=== PATIENT | male | born 1985 | race Two or more races ===

== ENCOUNTER 2025-04-25 20:58 | Inpatient (IN) | payer OTHER, MEDICAID ==
[~2025-04-25] VITALS: Ht 188 cm; Wt 72.0 kg
[2025-04-25 22:56] LABS: Hematocrit 43.9 % (41.0-53.0); Hemoglobin 15.0 g/dL (13.5-17.5); Mean Corpuscular Hemoglobin 29.5 pg (28.0-32.0); Mean Corpuscular Volume 86.5 fL (80.0-100.0); Nucleated Red Blood Cells % 0.0 %
[2025-04-25 23:20] LABS: Alanine Aminotransferase 35 U/L (7-40); Albumin 4.4 g/dL (3.2-4.8); Alkaline Phosphatase 87 U/L (46-116); Anion Gap 17 (5-15); BUN/Creatinine Ratio 13.6 (10.0-20.0); Blood Urea Nitrogen 17 mg/dL (9-23); Calcium 9.9 mg/dL (8.7-10.4); Carbon Dioxide 22 mmol/L (20-31); Lipase 20 U/L (12-53); Magnesium 2.0 mg/dL (1.6-2.6); Potassium 4.4 mmol/L (3.5-5.1); Total Protein 7.4 g/dL (5.7-8.2)
[2025-04-25 23:21] LABS: Bilirubin, Total 1.0 mg/dL (0.2-1.0); Chloride 94 mmol/L (98-107); Glucose 313 mg/dL (74-106); Sodium 133 mmol/L (136-145)
--- NOTE | 2025-04-25 23:40 | DVH ---
CT SCAN ABDOMEN AND PELVIS WITHOUT CONTRAST CLINICAL HISTORY: abd pain n/v TECHNIQUE: Helical axial images are obtained from the lung bases through the pelvis without oral cont rast. No intravenous contrast was administered. Coronal and sagittal reformatted images were generate d from thin section reconstructions. One or more of the following radiation dose reduction techniques were used for this examination: automated exposure control, adjustment of the mA and/or kV according to patient size, use of iterative reconstruction technique. COMPARISON: None FINDINGS: LOWER THORAX: Imaged lung bases are grossly clear. ABDOMEN AND PELVIS: Evaluation of visceral and vascular structures is limited due to lack of contrast administration. As visualized, the unenhanced liver, spleen, pancreas and adrenals appear grossly unremarkable. No si zable, radiopaque cholelithiasis or biliary ductal dilatation. No hydroureteronephrosis or sizable, obstructing urinary tract calculi identified. No evidence of abdominal aortic aneurysm. No evidence of small-bowel obstruction. Visualized appendix appears normal caliber. No free intraperi toneal air or fluid identified. Urinary bladder is distended. No sizable bladder calculus. No destructive osseous lesions identified. IMPRESSION: No bowel obstruction, free intraperitoneal air/ fluid or sizable inflammatory collections identified on this noncontrast examination.
[2025-04-26] VITALS (13 sets, daily range): BP systolic 123–160; BP diastolic 62–86; PULSE 71–105; RESP 8–22; TEMP 98.4–98.8; O2SAT 89–99
[2025-04-26] MEDS: cefTRIAXone 1GM/50ML D5W 50 ML IV ONE
[2025-04-26 00:16] LABS: Base Excess -1.1 mmol/L (-2.0-3.0)
--- NOTE | 2025-04-26 00:26 | ED.PDOC ---
History of present illness HPI Comments HPI: Poor Historian. 40-year-old male presents to emergency depart for evaluation of nausea and vomiting unable to keep anything down with some associated mild generalized abdominal discomfort. Patient states he feels very weak. Patient states he had similar episodes in the past due to DKA. Patient states he is compliant with his insulin. He had these symptoms for at least four days. Vomiting is nonbilious nonbloody. Denies any other acute symptoms. Past Medical History: DM type I, History of DKA Past Surgical History: right finger surgery Vitals: temperature of 98.3F pulse of 104 respiratory rate of 22, blood pressure of 144/94 SpO2 of 100%RA REVIEW OF SYSTEMS: CONSTITUTIONAL: Denies acute: fever, diaphoresis, chills, HEAD: Denies acute: headache, photophobia Eyes: Denies acute: Double vision, vision loss, eye pain, eye discharge. EARS: Denies acute: tinnitus, hearing loss, ear discharge, ear pain, THROAT: Denies acute: sore throat, swelling, difficulty swallowing , pain with swallowing, change in voice. NECK: Denies acute: neck pain, neck swelling, stiff neck. HEART: Denies acute : chest pain, palpitations, LUNGS: Denies acute: SOB, wheezing, cough, hemoptysis ABDOMEN: Denies acute: , diarrhea, melena , hematemesis, hematochezia SKIN: Denies acute: rash, redness, lesions, itchiness. EXTREMITIES: Denies acute: calf pain, numbness, tingling, weakness, denies pain in extremity. Denies acute: Low back pain. Neuro: Denies acute: focal neurological deficit, motor or sensory focal neurological deficit, tremors, seizure like activity, confusion, dizziness, change in mental status, loss of bowel or bladder function, cauda equina like symptoms. : Denies acute: dysuria, hematuria, flank pain, increase in urinary frequency. PSYCH: Denies acute: hallucination, suicidal ideation, homicidal ideation. PHYSICAL EXAM: General: ----moderate----acute distress, awake and alert. Head: normocephalic, atraumatic. Neck: supple, trachea is midline, no swelling. Throat: Normal phonation. Eyes:, no erythema, no purulent discharge, no proptosis, no icterus. Heart: regular rate, regular rhythm, no significant murmur appreciated. Lungs: no apparent respiratory distress, Able to speak in full sentences. No wheezing, no rhonchi, no crackles. No stridors Clear to auscultation bilaterally. Abdomen: Nonspecific mild generalized tender to palpation, non distended, soft, no guarding, no rebound, + bowel sounds. Neuro: Awake, Alert, oriented to name, self, situation, follows commands GCS=15. Speech is normal. Skin: no petechia, no purpura, no cyanosis, non-pale, not jaundice. Lower extremities: --no - Pitting edema no deformity, no focal swelling, no calf TTP. Makes eye contact. moves all four extremities. Face: no apparent facial droop. Ambulating in the ED independently. ED COURSE: At this time 7:09 a.m. I spoke with Dr. Silas Peterson physician. Patient has been having abdominal pain and nausea and vomiting causing him some chest discomfort from the multiple episodes of vomiting. Nicholas called and said that there is a change of condition. I am not aware who notified Nicholas that he said change of the patient's condition. At this time Nicholas authorized us to keep the patient our facility for further evaluation and treatment. DISCLAIMER: This medical document was created using an electronic medical record system with voice recognition software and computerized dictation system. Although this document has been carefully reviewed, there might still be some phonetic and typographical errors. Occasional wrong-word or "sound-alike" substitutions may have occurred due to the inherent limitations of voice recognition software. These areas are purely typographical due to imperfections of the software programs and do not reflect any compromise in the patient's medical care. Please read the chart carefully and recognize, using context, where these substitutions have occurred. Chief Complaint: Nausea/Vomiting Time Seen by MD: 23:53 History of present illness: Allergies Allergies: Coded Allergies: NO KNOWN ALLERGIES (Unverified , 04/25/25) Information Source: Patient Mode of Arrival: Wheelchair Was a procedure done? Was a procedure done?: No X-Ray, Labs, Meds, VS Vital Signs Date Time Temp Pulse Resp B/P (MAP) Pulse Ox O2 Delivery O2 Flow Rate FiO2 8/26/25 05:29 98.7 97 20 158/75 (102) 97 98.7 04/26/25 05:29 97 20 99 Room Air* 0 21 04/26/25 05:28 158/75 04/26/25 04:59 96 04/26/25 03:30 97.6 103 18 151/95 (113) 99 97.6 04/25/25 21:00 98.3 104 22 144/94 100 98.3 Lab Test 04/26/25 00:06 04/25/25 23:59 04/25/25 22:37 04/25/25 21:10 Range/Units Blood Gas Specimen Type Arterial Blood Gas Sample Site Right brachial Blood Gas Patient Temperature 37.0 Arterial Blood Date Drawn [id number] Arterial Blood pH 7.521 H 7.350-7.450 Arterial Blood Partial Pressure CO2 24.8 L 35.0-48.0 mmHg Arterial Blood Partial Pressure O2 81.4 L 83.0-108.0 mmHg Arterial Blood HCO3 19.8 L 21.0-28.0 mmol/L Arterial Blood Oxygen Saturation 96.1 94.0-98.0 % Arterial Blood Base Excess -1.1 -2.0-3.0 mmol/L Arterial Blood Oxyhemoglobin 94.5 94.0-98.0 % Arterial Blood Carboxyhemoglobin 1.5 0.5-1.5 % Arterial Blood Methemoglobin 0.2 0.0-1.5 % Alfred Test Modified Blood Gas Total Hemoglobin 15.00 13.5-17.5 g/dL Blood Gas Modality Room air FiO2 % 21.0 Urine Color Light-yellow Yellow Urine Clarity Clear Clear Urine pH 6.0 5.0-9.0 Urine Specific [place] 1.037 H 1.001-1.035 Urine Protein Trace H Negative Urine Ketones 4+ H Negative Urine Blood Negative Negative /uL Urine Nitrite Negative Negative Urine Bilirubin Negative Negative Urine Urobilinogen Normal Negative mg/dL Urine Leukocyte Esterase Negative Negative /uL Urine RBC None seen 0 - 3 /hpf Urine Microscopic WBC 1 0-3 /HPF Urine Squamous Epithelial Cells None seen <5 /hpf Urine Bacteria None seen None Seen /hpf Urine Glucose 4+ H Normal mg/dL Urine Opiates Screen Neg NEGATIVE Urine Fentanyl Screen Neg NEGATIVE Urine Barbiturates Screen Neg NEGATIVE Urine Phencyclidine Screen Neg NEGATIVE Urine Amphetamines Screen Neg NEGATIVE Urine Benzodiazepines Screen Neg NEGATIVE Urine Cocaine Screen Neg NEGATIVE Urine Cannabinoids Screen Pos NEGATIVE White Blood Count 19.3 H 4.4-10.8 10^3/uL Red Blood Count 5.07 4.5-5.90 10^6/uL Hemoglobin 15.0 13.5-17.5 g/dL Hematocrit 43.9 41.0-53.0 % Mean Corpuscular Volume 86.5 80.0-100.0 fL Mean Corpuscular Hemoglobin 29.5 28.0-32.0 pg Mean Corpuscular Hemoglobin Concent 34.1 32.0-36.0 g/dL Red Cell Distribution Width 14.4 H 11.8-14.3 % Platelet Count 327 140-450 10^3/uL Mean Platelet Volume 8.5 6.9-10.8 fL Neutrophils (%) (Auto) 84.8 H 37.0-80.0 % Lymphocytes (%) (Auto) 8.3 L 10.0-50.0 % Monocytes (%) (Auto) 6.8 0.0-12.0 % Eosinophils (%) (Auto) 0.0 0.0-7.0 % Basophils (%) (Auto) 0.1 0.0-2.0 % Neutrophils # (Auto) 16.4 H 1.6-8.6 10 ^3/uL Lymphocytes # (Auto) 1.6 0.4-5.4 10 ^3/uL Monocytes # (Auto) 1.3 0-1.3 10 ^3/uL Eosinophils # (Auto) 0 0-0.8 10 ^3/uL Basophils # (Auto) 0 0-0.2 10 ^3/uL Nucleated Red Blood Cells 0.0 % Sodium Level 133 L 136-145 mmol/L Potassium Level 4.4 3.5-5.1 mmol/L Chloride Level 94 L 98-107 mmol/L Carbon Dioxide Level 22 20-31 mmol/L Anion Gap 17 H 5-15 Blood Urea Nitrogen 17 9-23 mg/dL Creatinine 1.25 0.700-1.30 mg/dL Glomerular Filtration Rate Calc 75 >90 mL/min BUN/Creatinine Ratio 13.6 10.0-20.0 Serum Glucose 313 H 74-106 mg/dL Lactic Acid Level 2.0 0.4-2.0 mmol/L Calcium Level 9.9 8.7-10.4 mg/dL Magnesium Level 2.0 1.6-2.6 mg/dL Total Bilirubin 1.0 0.2-1.0 mg/dL Aspartate Amino Transferase (AST) 31 13-40 U/L Alanine Aminotransferase (ALT) 35 7-40 U/L Alkaline Phosphatase 87 46-116 U/L Total Protein 7.4 5.7-8.2 g/dL Albumin 4.4 3.2-4.8 g/dL Lipase 20 12-53 U/L Beta-Hydroxybutyric Acid > 4.500 H < 0.4 mmol/L POC Glucose 322 H 70-106 mg/dl Current Medications Medications (Trade) Dose Ordered Sig/Mayank Route Start Time Stop Time Status Last Admin Sodium Chloride 1,000 ml @ 1,000 mls/hr Q1H ONCE IV 04/25/25 22:30 04/25/25 23:29 DC 04/26/25 05:16 Ondansetron HCl (Zofran) 8 mg ONCE ONCE IV 04/25/25 22:30 04/25/25 22:31 DC 04/26/25 05:20 Insulin Human Regular (InsuLIN R) 5 units ONCE ONCE IV 04/26/25 00:00 04/26/25 00:02 DC 04/26/25 05:16 Ceftriaxone Sodium 50 ml @ 100 mls/hr ONCE ONCE IV 04/26/25 00:00 04/26/25 00:29 DC 04/26/25 05:49 Sodium Chloride 1,000 ml @ 1,000 mls/hr Q1H ONCE IV 04/26/25 00:30 04/26/25 01:29 DC 04/26/25 05:16 Fentanyl Citrate 100 mcg ONCE ONCE IV 04/26/25 05:30 04/26/25 05:31 DC 04/26/25 05:[address] [address] Ph: [phone] DIAGNOSTIC IMAGING Diagnostic Imaging Report : [id number] Signed PATIENT: VANESSA HOLLINS ACCT: [id number] UNIT: [id number] : 1985 LOC: ER ROOM / BED: / AGE / SEX: 40 / M ADM STATUS: REG ER SERVICE 24 ORDERING PHYSICIAN: ROHINI SHARP DO PROCEDURE(s): ABPL - CT AB PEL WO CON-NO ORAL OR IV REASON: abd pain n/v ORDER NUMBER(s): [id number], ACCESSION NUMBER(s): [id number] CT SCAN ABDOMEN AND PELVIS WITHOUT CONTRAST CLINICAL HISTORY: abd pain n/v TECHNIQUE: Helical axial images are obtained from the lung bases through the pelvis without oral contrast. No intravenous contrast was administered. Coronal and sagittal reformatted images were generated from thin section reconstruction s. One or more of the following radiation dose reduction techniques were used for this examination: automated exposure control, adjustment of the mA and/or kV according to patient size, use of iterative reconstruction technique. COMPARISON: None FINDINGS: LOWER THORAX: Imaged lung bases are grossly clear. ABDOMEN AND PELVIS: Evaluation of visceral and vascular structures is limited due to lack of contrast administration. As visualized, the unenhanced liver, spleen, pancreas and adrenals appear grossl y unremarkable. No sizable, radiopaque cholelithiasis or biliary ductal dilatation. No hydroureteronephrosis or sizable, obstructing urinary tract calculi identified. No evidence of abdominal aortic aneurysm. No evidence of small-bowel obstruction. Visualized appendix appears normal caliber. No free intraperitoneal air or fluid identified. Urinary bladder is distended. No sizable bladder calculus. No destructive osseous lesions identified. IMPRESSION: No bowel obstruction, free intraperitoneal air/ fluid or sizable inflammatory collections identified on this noncontrast examination. ATED BY: CHAU ROBINS MD DICTATED DATE/TIME: 04/25/252336 SIGNED BY: CHAU ROBINS MD SIGNED DATE/TIME: 04/25/252336 CC: Time of 1ST Reevaluation: 00:23 Reevaluation 1ST: Unchanged Time of 2ND Reevaluation: 02:18 (The case was discussed with the [facility] admitting team (HPI, physical exam, labs and diagnostic tests that were available at the time of disposition, ED course, treatment plan) on the phone. They agreed to transfer the patient to their service by ALS for further evaluation and treatment. Dr. kelly Authorization number is--[id number]) Time of 3RD Reevaluation: 05:05 (As of this minute, none of the medications I ordered a fluids insulin Zofran has been given yet. Transfer team is here to pick him up.) Patient Education/Counseling: Diagnosis, Treatment, Other (need for admission ) Family Education/Counseling: No Family Present SEPSIS Sepsis Screen Date sepsis recognized/suspect: Apr 25, 2025 Time Sepsis recognized/suspect: 2099 Recent Procedure: No On Antibiotic Therapy: No Respiratory Rate >20: Yes Heart Rate >90: Yes Temp<36 C (96.8 F) or >38.3 C: No SBP <90 or MAP <65 mmHG: No New Acute Mental Status Change: No Is the patient on CPAP, BIPAP,: No Physician Orders Metal Tube Cutter (04/25/25 ) Electrocardigram (04/25/25 22:25) Ct Ab Pel Wo Con-No Oral Or Iv (04/25/25 22:25) Abg W/ Co-Ox (04/25/25 23:57) Blood Culture (04/26/25 00:24) Electrocardigram (04/26/25 05:37) Electrocardigram (04/26/25 07:37) Imaging Transfer Request (04/26/25 04:56) Troponin-I Hs (04/26/25 07:06) Troponin-I Hs (04/26/25 08:06) Troponin-I Hs (04/26/25 10:06) Vital Signs Date Time Temp Pulse Resp B/P (MAP) Pulse Ox O2 Delivery O2 Flow Rate FiO2 04/26/25 05:29 98.7 97 20 158/75 (102) 97 98.7 04/26/25 05:29 97 20 99 Room Air* 0 21 04/26/25 05:28 158/75 04/26/25 04:59 96 04/26/25 03:30 97.6 103 18 151/95 (113) 99 97.6 04/25/25 21:00 98.3 104 22 144/94 100 98.3 Laboratory Tests Test 04/25/25 22:37 Lactic Acid Level 2.0 mmol/L (0.4-2.0) White Blood Count 19.3 10^3/uL (4.4-10.8) H Medications Medications Dose Ordered Sig/Mayank Route Start Time Stop Time Status Last Admin Dose Admin Ceftriaxone Sodium 50 ml @ 100 mls/hr ONCE ONCE IV 04/26/25 00:00 04/26/25 00:29 DC 04/26/25 05:49 Fentanyl Citrate 100 mcg ONCE ONCE IV 04/26/25 05:30 04/26/25 05:31 DC 04/26/25 05:28 Insulin Human Regular 5 units ONCE ONCE IV 04/26/25 00:00 04/26/25 00:02 DC 04/26/25 05:16 Ondansetron HCl 8 mg ONCE ONCE IV 04/25/25 22:30 04/25/25 22:31 DC 04/26/25 05:20 Sodium Chloride 1,000 ml @ 1,000 mls/hr Q1H ONCE IV 04/25/25 22:30 04/25/25 23:29 DC 04/26/25 05:16 Sodium Chloride 1,000 ml @ 1,000 mls/hr Q1H ONCE IV 04/26/25 00:30 04/26/25 01:29 DC 04/26/25 05:16 Departure 1 Departure Time of Disposition: 00:25 Impression: Primary Impression: Nausea and vomiting Additional Impressions: Hyperglycemia Leukocytosis Disposition: 02 SHORT TERM HOSPITAL Admit to: Tele Condition: Guarded Discharged With: Self Critical Care Note Critical Care Time?: No I personally scribed for ROHINI SHARP DO ([email or web address]) on 04/26/25 at 00:37. Electronically submitted by Greg Mccollum [email or web address]). ROHINI SHARP DO Apr 26, 2025 00:26
[2025-04-26 02:56] LABS: Urine Protein, UAD TRACE (Negative)
[2025-04-26 03:00] LABS: Cannabinoid Screen, Urine Pos (NEGATIVE); Phencyclidine Screen, Urine Neg (NEGATIVE)
[2025-04-26 03:04] LABS: Amphetamine Screen, Urine Neg (NEGATIVE); Barbiturate Scree,Urine Neg (NEGATIVE); Benzodiazephine Screen, Urine Neg (NEGATIVE); Cocaine Screen, Urine Neg (NEGATIVE); Opiate Scree,Urine Neg (NEGATIVE)
[2025-04-26] MEDS: SODIUM CHLORIDE 0.9% 1,000 ML IV ONE ×2 (05:16)
[2025-04-26] MEDS: InsuLIN REG 1unit/0.01ml Soln (100units/ml) IV ONE (05:16)
[2025-04-26] MEDS: ONDANSETRON HCL 4 MG/2 ML VIAL IV ONE (05:20)
[2025-04-26] MEDS: fentaNYL CITRATE 100 MCG/2 ML VL IV ONE (05:28)
--- NOTE | 2025-04-26 06:05 | ECG ---
[facility] Test Date: 2025-04-26 Test Time: 04:59:57 Pat Name: ELDA HOLLINS Department: Room: [facility] Gender: M Utilization Review Specialist: KUSHAL : 1985 Requested By: ROHINI SHARP Order Number: [id number] Reading MD: Jaylen Dao Measurements Intervals [place] Rate: 96 P: 71 MO: 126 QRS: 81 QRSD: 88 T: 78 QT: 359 QTc: 454 Interpretive Statements Sinus rhythm Electronically Signed On 04-27-2025 18:46:38 PDT by Jaylen Dao Please click the below link to view image of tracing.
[2025-04-26 08:19] LABS: Hematocrit 40.5 % (41.0-53.0); Hemoglobin 13.5 g/dL (13.5-17.5); Mean Corpuscular Hemoglobin 29.4 pg (28.0-32.0); Mean Corpuscular Volume 88.1 fL (80.0-100.0); Nucleated Red Blood Cells % 0.0 %
[2025-04-26 08:32] LABS: Potassium 4.7 mmol/L (3.5-5.1)
[2025-04-26 08:33] LABS: Anion Gap 16 (5-15); Carbon Dioxide 19 mmol/L (20-31); Chloride 98 mmol/L (98-107); Sodium 133 mmol/L (136-145)
[2025-04-26 08:34] LABS: Calcium 8.3 mg/dL (8.7-10.4)
[2025-04-26 08:38] LABS: BUN/Creatinine Ratio 17.0 (10.0-20.0); Blood Urea Nitrogen 19 mg/dL (9-23)
[2025-04-26 08:40] LABS: Glucose 327 mg/dL (74-106)
[2025-04-26] MEDS: METOCLOPRAMIDE HCL 5MG/ml INJ 2ml VIAL IV PRN (09:33)
[2025-04-26] MEDS ORDERED: DOCUSATE SOD 100 MG CAP PO PRN (10:00)
[2025-04-26] MEDS ORDERED: ACETAMINOPHEN 325 MG TAB PO PRN (10:00)
[2025-04-26] MEDS ORDERED: NITROGLYCERIN 0.4 MG SL TAB SL PRN (10:00)
[2025-04-26] MEDS ORDERED: DEXTROSE (50%) 50ML SYRG IV PRN (10:00)
--- NOTE | 2025-04-26 10:09 | DVHHP2 ---
History of Present Illness Reason for Visit: Nausea and vomiting History of Present Illness Ji Casas is a 40-year-old male with past medical history of diabetes, who came to the hospital with complaints of intractable nausea and vomiting. Patient states he has been nauseated and vomiting for 1 week. He states the last 4 days he has not been able to hold down any food or water. Patient has been in DKA prior and states this feels the same. He does state that he is compliant with his medications and has been taking his insulin. 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) Smoke: No ALCOHOL: rare Drugs: Marijuana Lives: with Family Domestic Violence: Neg Review of Systems Constitutional: No: Fever, Chills, Sweats, Weakness, Malaise, Other Eyes: No: Pain, Vision change, Conjunctivae inflammation, Eyelid inflammation, Other, Redness ENT: No: Ear pain, Ear discharge, Nose pain, Nose discharge, Nose congestion, Mouth pain, Mouth swelling, Throat pain, Throat swelling, Other Respiratory: No: Cough, Dry, Shortness of breath, SOB with excertion, Wheezing, Hemoptysis, Pleuritic Pain, Sputum, Wheezing, Other Cardiovascular: No: Chest Pain, Palpitations, Orthopnea, Paroxysmal Noc. Dyspnea, Edema, Lt Headedness, Other Gastrointestinal: Nausea, Vomiting, Abdominal Pain; No: Diarrhea, Constipation, Melena, Hematochezia, Other Genitourinary: No Dysuria, No Frequency, No Incontinence, No Hematuria, No Retention, No Other Musculoskeletal: No: other, neck pain, shoulder pain, arm pain, back pain, hand pain, leg pain, foot pain Skin: No: Rash, Lesions, Jaundice, Bruising, Other Neurological: No: Weakness, Numbness, Incoordination, Change in speech, Confusion, Seizures, Other Allergies: Coded Allergies: NO KNOWN ALLERGIES (Unverified , 04/25/25) Medications Current Medications Medications Dose Ordered Sig/Mayank Route Start Time Stop Time Status Last Admin Dose Admin Metoclopramide HCl 10 mg Q6HPRN PRN IV 04/26/25 08:30 04/26/25 09:33 10 MG Exam Vital Signs Vital Signs Date Time Temp Pulse Resp B/P (MAP) Pulse Ox O2 Delivery O2 Flow Rate FiO2 04/26/25 08:00 97.9 79 18 199/109 (139) 97 97.9 04/26/25 08:00 Room Air* 0 21 General Appearance: Alert, Oriented X3, Cooperative, moderate distress HEENT: Atraumatic, PERRLA Respiratory: Clear to auscultation, Normal air movement Cardiovascular: Regular rate, Normal S1, Normal S2, No murmurs Abdominal: Normal bowel sounds, Soft, Other (Nausea and vomiting, abdominal pain) Extremities: No clubbing, No cyanosis, No edema, Normal pulses, No tenderness/swelling Skin: No rashes, No breakdown, No significant lesion Neuro: Normal gait, Normal speech, Strength at 5/5 X4 ext, Normal tone Psych/Mental Status: Mental status NL, Mood NL Labs/Xrays Labs Test 04/26/25 08:28 04/26/25 07:57 04/26/25 00:06 04/25/25 23:59 Range/Units POC Glucose 312 H 70-106 mg/dl White Blood Count 17.1 H 4.4-10.8 10^3/uL Red Blood Count 4.59 4.5-5.90 10^6/uL Hemoglobin 13.5 13.5-17.5 g/dL Hematocrit 40.5 L 41.0-53.0 % Mean Corpuscular Volume 88.1 80.0-100.0 fL Mean Corpuscular Hemoglobin 29.4 28.0-32.0 pg Mean Corpuscular Hemoglobin Concent 33.4 32.0-36.0 g/dL Red Cell Distribution Width 14.4 H 11.8-14.3 % Platelet Count 256 140-450 10^3/uL Mean Platelet Volume 8.5 6.9-10.8 fL Neutrophils (%) (Auto) 82.7 H 37.0-80.0 % Lymphocytes (%) (Auto) 8.8 L 10.0-50.0 % Monocytes (%) (Auto) 8.4 0.0-12.0 % Eosinophils (%) (Auto) 0.0 0.0-7.0 % Basophils (%) (Auto) 0.1 0.0-2.0 % Neutrophils # (Auto) 14.2 H 1.6-8.6 10 ^3/uL Lymphocytes # (Auto) 1.5 0.4-5.4 10 ^3/uL Monocytes # (Auto) 1.4 H 0-1.3 10 ^3/uL Eosinophils # (Auto) 0 0-0.8 10 ^3/uL Basophils # (Auto) 0 0-0.2 10 ^3/uL Nucleated Red Blood Cells 0.0 % Sodium Level 133 L 136-145 mmol/L Potassium Level 4.7 3.5-5.1 mmol/L Chloride Level 98 98-107 mmol/L Carbon Dioxide Level 19 L 20-31 mmol/L Anion Gap 16 H 5-15 Blood Urea Nitrogen 19 9-23 mg/dL Creatinine 1.12 0.700-1.30 mg/dL Glomerular Filtration Rate Calc 86 >90 mL/min BUN/Creatinine Ratio 17.0 10.0-20.0 Serum Glucose 327 H 74-106 mg/dL Lactic Acid Level 1.4 0.4-2.0 mmol/L Calcium Level 8.3 L 8.7-10.4 mg/dL Troponin I High Sensitivity 8 </=54 ng/L Beta-Hydroxybutyric Acid > 4.500 H < 0.4 mmol/L Blood Gas Specimen Type Arterial Blood Gas Sample Site Right brachial Blood Gas Patient Temperature 37.0 Arterial Blood Date Drawn [id number] Arterial Blood pH 7.521 H 7.350-7.450 Arterial Blood Partial Pressure CO2 24.8 L 35.0-48.0 mmHg Arterial Blood Partial Pressure O2 81.4 L 83.0-108.0 mmHg Arterial Blood HCO3 19.8 L 21.0-28.0 mmol/L Arterial Blood Oxygen Saturation 96.1 94.0-98.0 % Arterial Blood Base Excess -1.1 -2.0-3.0 mmol/L Arterial Blood Oxyhemoglobin 94.5 94.0-98.0 % Arterial Blood Carboxyhemoglobin 1.5 0.5-1.5 % Arterial Blood Methemoglobin 0.2 0.0-1.5 % Alfred Test Modified Blood Gas Total Hemoglobin 15.00 13.5-17.5 g/dL Blood Gas Modality Room air FiO2 % 21.0 Urine Color Light-yellow Yellow Urine Clarity Clear Clear Urine pH 6.0 5.0-9.0 Urine Specific [place] 1.037 H 1.001-1.035 Urine Protein Trace H Negative Urine Ketones 4+ H Negative Urine Blood Negative Negative /uL Urine Nitrite Negative Negative Urine Bilirubin Negative Negative Urine Urobilinogen Normal Negative mg/dL Urine Leukocyte Esterase Negative Negative /uL Urine RBC None seen 0 - 3 /hpf Urine Microscopic WBC 1 0-3 /HPF Urine Squamous Epithelial Cells None seen <5 /hpf Urine Bacteria None seen None Seen /hpf Urine Glucose 4+ H Normal mg/dL Urine Opiates Screen Neg NEGATIVE Urine Fentanyl Screen Neg NEGATIVE Urine Barbiturates Screen Neg NEGATIVE Urine Phencyclidine Screen Neg NEGATIVE Urine Amphetamines Screen Neg NEGATIVE Urine Benzodiazepines Screen Neg NEGATIVE Urine Cocaine Screen Neg NEGATIVE Urine Cannabinoids Screen Pos NEGATIVE Test 04/25/25 22:37 Range/Units Magnesium Level 2.0 1.6-2.6 mg/dL Total Bilirubin 1.0 0.2-1.0 mg/dL Aspartate Amino Transferase (AST) 31 13-40 U/L Alanine Aminotransferase (ALT) 35 7-40 U/L Alkaline Phosphatase 87 46-116 U/L Total Protein 7.4 5.7-8.2 g/dL Albumin 4.4 3.2-4.8 g/dL Lipase 20 12-53 U/L CT SCAN ABDOMEN AND PELVIS WITHOUT CONTRAST FINDINGS: LOWER THORAX: Imaged lung bases are grossly clear. ABDOMEN AND PELVIS: Evaluation of visceral and vascular structures is limited due to lack of contrast administration. As visualized, the unenhanced liver, spleen, pancreas and adrenals appear grossly unremarkable. No sizable, radiopaque cholelithiasis or biliary ductal dilatation. No hydroureteronephrosis or sizable, obstructing urinary tract calculi identified. No evidence of abdominal aortic aneurysm. No evidence of small-bowel obstruction. Visualized appendix appears normal caliber. No free intraperitoneal air or fluid identified. Urinary bladder is distended. No sizable bladder calculus. No destructive osseous lesions identified. IMPRESSION: No bowel obstruction, free intraperitoneal air/ fluid or sizable inflammatory collections identified on this noncontrast examination. SEPSIS Sepsis Screen Date sepsis recognized/suspect: Apr 26, 2025 Time Sepsis recognized/suspect: 08 Recent Procedure: No On Antibiotic Therapy: No Respiratory Rate >20: No Heart Rate >90: No Temp<36 C (96.8 F) or >38.3 C: No SBP <90 or MAP <65 mmHG: No New Acute Mental Status Change: No Is the patient on CPAP, BIPAP,: No Physician Orders Electrocardigram (04/26/25 05:37) Electrocardigram (04/26/25 07:37) Imaging Transfer Request (04/26/25 04:56) Troponin-I Hs (04/26/25 10:06) Metoclopramide Injection (Reglan Injecti (04/26/25 08:30) Admit (04/26/25 09:49) Code Status (04/26/25 09:49) Hydrocodone-Acet 5/325mg Tab ([place] 5/32 (04/26/25 10:00) Ondansetron Hcl (Zofran) (04/26/25 10:00) Docusate Sodium Capsule (Colace Capsule) (04/26/25 10:00) Complete Blood Count (04/27/25 04:00) Comprehensive Metabolic Panel (04/27/25 04:00) Condition: Critical (04/26/25 09:49) Acetaminophen Tablet (Tylenol Tablet) (04/26/25 10:00) Nitroglycerin Sublingual (Ntrostat Subli (04/26/25 10:00) Morphine Sulfate Injection (04/26/25 10:00) Stat Ekg For Chest Pain (04/26/25 09:49) Notify Md Of Changes From Base (04/26/25 09:49) Wet End Supervisor For 24 Hours (04/26/25 09:49) Emergency Dysrhythmia Protocol (04/26/25 09:49) Rhythm Strips Once Every Shift (04/26/25 09:49) Oxygen By Nasal Cannula (04/26/25 09:49) Insulin Drip Protocol (04/26/25 ) Sodium Chloride 0.9% (04/26/25 10:00) Insulin Algorithm # 1 (04/26/25 10:00) Dextrose 50% Syringe (04/26/25 10:00) Glucose Blood (Accu-Chek Comfort Curve T (04/26/25 10:30) Phosphorus (04/26/25 09:49) Magnesium (04/26/25 09:49) Osmolality, Serum (04/26/25 09:49) Abg W/ Co-Ox (04/26/25 09:49) Basic Metabolic Panel (04/26/25 14:00) Basic Metabolic Panel (04/26/25 20:00) Basic Metabolic Panel (04/27/25 02:00) Urinalysis (04/26/25 09:49) Neurological Assessment (04/26/25 09:49) Vs/Hemodynamics .PER UNIT PROTOCOL (04/26/25 09:49) Acetone (04/26/25 09:49) Insulin Lantus (Glargine) (Lantus) (04/26/25 22:00) Sodium Chloride 0.9% (04/26/25 14:00) Vital Signs Date Time Temp Pulse Resp B/P (MAP) Pulse Ox O2 Delivery O2 Flow Rate FiO2 04/26/25 08:00 97.9 79 18 199/109 (139) 97 97.9 04/26/25 08:00 Room Air* 0 21 04/26/25 05:29 98.7 97 20 158/75 (102) 97 98.7 04/26/25 05:29 97 20 99 Room Air* 0 21 04/26/25 05:28 158/75 04/26/25 04:59 96 04/26/25 03:30 97.6 103 18 151/95 (113) 99 97.6 Laboratory Tests Test 04/25/25 22:37 04/26/25 07:57 Lactic Acid Level 2.0 mmol/L (0.4-2.0) 1.4 mmol/L (0.4-2.0) White Blood Count 19.3 10^3/uL (4.4-10.8) H 17.1 10^3/uL (4.4-10.8) H Medications Medications Dose Ordered Sig/Mayank Route Start Time Stop Time Status Last Admin Dose Admin Ceftriaxone Sodium 50 ml @ 100 mls/hr ONCE ONCE IV 04/26/25 00:00 04/26/25 00:29 DC 04/26/25 05:49 100 MLS/HR Fentanyl Citrate 100 mcg ONCE ONCE IV 04/26/25 05:30 04/26/25 05:31 DC 04/26/25 05:28 100 MCG Insulin Human Regular 5 units ONCE ONCE IV 04/26/25 00:00 04/26/25 00:02 DC 04/26/25 05:16 5 UNITS Metoclopramide HCl 10 mg Q6HPRN PRN IV 04/26/25 08:30 04/26/25 09:33 10 MG Ondansetron HCl 8 mg ONCE ONCE IV 04/25/25 22:30 04/25/25 22:31 DC 04/26/25 05:20 8 MG Sodium Chloride 1,000 ml @ 1,000 mls/hr Q1H ONCE IV 04/25/25 22:30 04/25/25 23:29 DC 04/26/25 05:16 1,000 MLS/HR Sodium Chloride 1,000 ml @ 1,000 mls/hr Q1H ONCE IV 04/26/25 00:30 04/26/25 01:29 DC 04/26/25 05:16 1,000 MLS/HR Assessment/Plan Assessment/Plan Assessment: Diabetic ketoacidosis, Intractable nausea and vomiting, Uncontrolled diabetes, Leukocytosis, Plan: Admit to SDU, IV insulin drip, IV hydration, IV antibiotics, Manage/Monitor electrolytes closely, BMP Q 6 hours x 3, NPO except ice chips, Plan discussed with: Patient My Orders Orders - DREAD NAVARRO [employer] Procedure Category Date Status Time Metoclopramide PHA 04/26/25 In Process Injection (Reglan 08:30 Admit ADMIT 04/26/25 Transmitted 09:49 Code Status CODE 04/26/25 Transmitted 09:49 Hydrocodone-Acet PHA 04/26/25 Transmitted 5/325mg Tab ([place] 10:00 Ondansetron Hcl PHA 04/26/25 Transmitted (Zofran) 10:00 Docusate Sodium [facility] 04/26/25 Transmitted Capsule (Colace 10:00 Complete Blood Count LAB 04/27/25 Verified 04:00 Comprehensive LAB 04/27/25 Verified Metabolic Panel 04:00 Condition: Critical [facility] 04/26/25 Transmitted 09:49 Acetaminophen Tablet PHA 04/26/25 Transmitted (Tylenol Tablet) 10:00 Nitroglycerin PHA 04/26/25 Transmitted Sublingual (Ntrostat 10:00 Morphine Sulfate PHA 04/26/25 Transmitted Injection 10:00 Stat Ekg For Chest [facility] 04/26/25 Transmitted Pain 09:49 Notify Of Changes [facility] 04/26/25 Transmitted From Base 09:49 Wet End Supervisor For [facility] 04/26/25 Transmitted 24 Hours 09:49 Emergency Dysrhythmia [facility] 04/26/25 Transmitted Protocol 09:49 Rhythm Strips Once [facility] 04/26/25 Transmitted Every Shift 09:49 Oxygen By Nasal RT 04/26/25 Transmitted Cannula 09:49 Insulin Drip Protocol [facility] 04/26/25 Transmitted Sodium Chloride 0.9% PHA 04/26/25 Transmitted 10:00 Insulin Algorithm # 1 [facility] 04/26/25 Verified 10:00 Dextrose 50% Syringe PHA 04/26/25 Verified 10:00 Glucose Blood PHA 04/26/25 Verified (Accu-Chek Comfort 10:30 Phosphorus LAB 04/26/25 Transmitted 09:49 Magnesium LAB 04/26/25 Transmitted 09:49 Osmolality, Serum LAB 04/26/25 Transmitted 09:49 Abg W/ Co-Ox RT 04/26/25 Transmitted 09:49 Basic Metabolic Panel LAB 04/26/25 Verified 14:00 Basic Metabolic Panel LAB 04/26/25 Verified 20:00 Basic Metabolic Panel LAB 04/27/25 Verified 02:00 Urinalysis LAB 04/26/25 Transmitted 09:49 Neurological STACIA 04/26/25 Verified Assessment 09:49 Vs/Hemodynamics STACIA 04/26/25 Verified 09:49 Acetone LAB 04/26/25 Transmitted 09:49 Insulin Lantus PHA 04/26/25 Verified (Glargine) (Lantus) 22:00 Sodium Chloride 0.9% PHA 04/26/25 Transmitted 14:00 Date of Service: Apr 26, 2025 Billing Provider: DREAD NAVARRO Common Visit Codes: [id number] INP/OBS CARE (HIGH) DREAD NAVARRO Apr 26, 2025 10:08
[2025-04-26 10:25] LABS: Base Excess -7.7 mmol/L (-2.0-3.0)
[2025-04-26 10:30] LABS: Magnesium 1.9 mg/dL (1.6-2.6)
[2025-04-26] MEDS: ACCU-CHEK COMFORT CURVE STRIP VI SCH (10:30)
[2025-04-26] MEDS: SODIUM CHLORIDE 0.9% 1,000 ML IV SCH ×3 (11:00→16:12)
[2025-04-26] MEDS: INSULIN DRIP 100 UNIT/100ML 100 ML IV SCH ×4 (11:07→23:02)
[2025-04-26] MEDS: ONDANSETRON HCL 4 MG/2 ML VIAL IV PRN (14:00)
[2025-04-26 14:48] LABS: Chloride 101 mmol/L (98-107); Potassium 4.3 mmol/L (3.5-5.1)
[2025-04-26 14:49] LABS: Anion Gap 13 (5-15)
[2025-04-26 14:50] LABS: Calcium 8.5 mg/dL (8.7-10.4); Carbon Dioxide 20 mmol/L (20-31); Sodium 134 mmol/L (136-145)
[2025-04-26 14:54] LABS: BUN/Creatinine Ratio 11.5 (10.0-20.0); Blood Urea Nitrogen 13 mg/dL (9-23); Glucose 263 mg/dL (74-106)
[2025-04-26 15:05] LABS: Urine Protein, UAD Negative (Negative)
[2025-04-26] MEDS ORDERED: THROAT LOZENGES(CEPASTAT) MT PRN (15:45)
[2025-04-26] MEDS: MORPHINE SULFATE INJ 2 MG/ml SYRG IV PRN (16:25)
[2025-04-26] MEDS: SALINE 0.65 % NASAL SPRAY 45ML BOTTLE EACHNOSTRI ONE (17:32)
[2025-04-26 20:04] LABS: Chloride 105 mmol/L (98-107); Potassium 3.9 mmol/L (3.5-5.1); Sodium 138 mmol/L (136-145)
[2025-04-26 20:05] LABS: Anion Gap 9 (5-15); Carbon Dioxide 24 mmol/L (20-31)
[2025-04-26 20:06] LABS: Calcium 7.9 mg/dL (8.7-10.4)
[2025-04-26 20:10] LABS: BUN/Creatinine Ratio 12.1 (10.0-20.0); Blood Urea Nitrogen 12 mg/dL (9-23); Glucose 162 mg/dL (74-106)
[2025-04-26] MEDS: INSULIN LANTUS (GLARGINE) 1 /0.01ml (100units/ml) SC SCH (21:50)
[2025-04-27] VITALS (22 sets, daily range): BP systolic 138–168; BP diastolic 76–102; PULSE 64–90; RESP 6–16; TEMP 98–98.6; O2SAT 93–100
[2025-04-27] MEDS: INSULIN DRIP 100 UNIT/100ML 100 ML IV SCH
[2025-04-27] MEDS ORDERED: DEXTROSE (50%) 50ML SYRG IV PRN ×2 (00:15→12:30)
[2025-04-27] MEDS: InsuLIN REG 1unit/0.01ml Soln (100units/ml) SC SCH ×2 (04:00→18:00)
[2025-04-27] MEDS: ACCU-CHEK COMFORT CURVE STRIP VI SCH ×2 (04:20→18:00)
[2025-04-27 06:10] LABS: Hematocrit 37.8 % (41.0-53.0); Hemoglobin 12.9 g/dL (13.5-17.5); Mean Corpuscular Hemoglobin 29.6 pg (28.0-32.0); Mean Corpuscular Volume 86.5 fL (80.0-100.0); Nucleated Red Blood Cells % 0.0 %
[2025-04-27 06:20] LABS: Alanine Aminotransferase 31 U/L (7-40); Alkaline Phosphatase 67 U/L (46-116); Anion Gap 9 (5-15); BUN/Creatinine Ratio 12.5 (10.0-20.0); Blood Urea Nitrogen 11 mg/dL (9-23); Carbon Dioxide 28 mmol/L (20-31); Chloride 101 mmol/L (98-107); Glucose 100 mg/dL (74-106); Potassium 4.0 mmol/L (3.5-5.1); Sodium 138 mmol/L (136-145); Total Protein 5.7 g/dL (5.7-8.2)
[2025-04-27 06:21] LABS: Albumin 3.4 g/dL (3.2-4.8)
[2025-04-27 06:22] LABS: Bilirubin, Total 0.9 mg/dL (0.2-1.0)
[2025-04-27 06:23] LABS: Calcium 8.1 mg/dL (8.7-10.4)
[2025-04-27] MEDS: cefTRIAXone 1GM/50ML D5W 50 ML IV SCH (08:36)
[2025-04-27] MEDS: MORPHINE SULFATE INJ 2 MG/ml SYRG IV PRN (10:22)
[2025-04-27 10:50] LABS: Hepatitis B Surface Antigen Negative (Negative)
--- NOTE | 2025-04-27 10:53 | MEDREC ---
[facility] ASP Intervention Section I [facility] ASP Intervention: Review courses of therapy (Leukocytosis may occur in the presence of DKA. Leukocytosis trending towards normal as BG recovers. Pt afebrile since admission, negative urine analysis, lactic acid WNL since admission, and CMP all WNL. May consider d/cing abx if/when clinically appropriate) MICHAEL MOSHER [facility] RESIDENT Apr 27, 2025 10:53
[2025-04-27 11:26] LABS: Hepatitis C Antibody Negative (Negative)
--- NOTE | 2025-04-27 12:28 | DVHDS2 ---
Discharge Summary Date of Admission Apr 26, 2025 at 09:49 Date of Discharge: Apr 27, 2025 Labs/Diagnostic Data: Laboratory Results Test 04/27/25 11:51 04/27/25 05:36 04/26/25 18:02 04/26/25 14:23 POC Glucose 108 mg/dl (70-106) White Blood Count 11.4 10^3/uL (4.4-10.8) Red Blood Count 4.37 10^6/uL (4.5-5.90) Hemoglobin 12.9 g/dL (13.5-17.5) Hematocrit 37.8 % (41.0-53.0) Mean Corpuscular Volume 86.5 fL (80.0-100.0) Mean Corpuscular Hemoglobin 29.6 pg (28.0-32.0) Mean Corpuscular Hemoglobin Concent 34.2 g/dL (32.0-36.0) Red Cell Distribution Width 14.6 % (11.8-14.3) Platelet Count 247 10^3/uL (140-450) Mean Platelet Volume 8.4 fL (6.9-10.8) Neutrophils (%) (Auto) 68.5 % (37.0-80.0) Lymphocytes (%) (Auto) 19.1 % (10.0-50.0) Monocytes (%) (Auto) 12.1 % (0.0-12.0) Eosinophils (%) (Auto) 0.1 % (0.0-7.0) Basophils (%) (Auto) 0.2 % (0.0-2.0) Neutrophils # (Auto) 7.8 10 ^3/uL (1.6-8.6) Lymphocytes # (Auto) 2.2 10 ^3/uL (0.4-5.4) Monocytes # (Auto) 1.4 10 ^3/uL (0-1.3) Eosinophils # (Auto) 0 10 ^3/uL (0-0.8) Basophils # (Auto) 0 10 ^3/uL (0-0.2) Nucleated Red Blood Cells 0.0 % Sodium Level 138 mmol/L (136-145) Potassium Level 4.0 mmol/L (3.5-5.1) Chloride Level 101 mmol/L (98-107) Carbon Dioxide Level 28 mmol/L (20-31) Anion Gap 9 (5-15) Blood Urea Nitrogen 11 mg/dL (9-23) Creatinine 0.88 mg/dL (0.700-1.30) Glomerular Filtration Rate Calc 112 mL/min (>90) BUN/Creatinine Ratio 12.5 (10.0-20.0) Serum Glucose 100 mg/dL (74-106) Calcium Level 8.1 mg/dL (8.7-10.4) Total Bilirubin 0.9 mg/dL (0.2-1.0) Aspartate Amino Transferase (AST) 32 U/L (13-40) Alanine Aminotransferase (ALT) 31 U/L (7-40) Alkaline Phosphatase 67 U/L (46-116) Total Protein 5.7 g/dL (5.7-8.2) Albumin 3.4 g/dL (3.2-4.8) Hepatitis B Surface Antigen Negative (Negative) Hepatitis C Antibody Negative (Negative) Urine Color Light-yellow (Yellow) Urine Clarity Clear (Clear) Urine pH 5.5 (5.0-9.0) Urine Specific [place] 1.034 (1.001-1.035) Urine Protein Negative (Negative) Urine Ketones 4+ (Negative) Urine Blood Negative /uL (Negative) Urine Nitrite Negative (Negative) Urine Bilirubin Negative (Negative) Urine Urobilinogen Normal mg/dL (Negative) Urine Leukocyte Esterase Negative /uL (Negative) Urine RBC <1 /hpf (0 - 3) Urine Microscopic WBC < 1 /HPF (0-3) Urine Squamous Epithelial Cells None seen /hpf (<5) Urine Bacteria None seen /hpf (None Seen) Urine Glucose 4+ mg/dL (Normal) Test 04/26/25 12:57 04/26/25 10:09 04/26/25 07:57 04/25/25 23:59 Troponin I High Sensitivity 8 ng/L (</=54) Blood Gas Specimen Type Arterial Blood Gas Sample Site Left brachial Blood Gas Patient Temperature 37.0 Arterial Blood Date Drawn [id number] Arterial Blood pH 7.375 (7.350-7.450) Arterial Blood Partial Pressure CO2 28.0 mmHg (35.0-48.0) Arterial Blood Partial Pressure O2 90.5 mmHg (83.0-108.0) Arterial Blood HCO3 16.0 mmol/L (21.0-28.0) Arterial Blood Oxygen Saturation 95.9 % (94.0-98.0) Arterial Blood Base Excess -7.7 mmol/L (-2.0-3.0) Arterial Blood Oxyhemoglobin 94.7 % (94.0-98.0) Arterial Blood Carboxyhemoglobin 0.9 % (0.5-1.5) Arterial Blood Methemoglobin 0.3 % (0.0-1.5) Alfred Test N/a Blood Gas Total Hemoglobin 13.40 g/dL (13.5-17.5) Blood Gas Modality Room air FiO2 % 21.0 Hemoglobin A1c 9.3 % A1C (<5.7) Serum Osmolality 304 mOsm/kg (278-298) Lactic Acid Level 1.4 mmol/L (0.4-2.0) Phosphorus Level 3.0 mg/dL (2.4-5.1) Magnesium Level 1.9 mg/dL (1.6-2.6) Beta-Hydroxybutyric Acid > 4.500 mmol/L (< 0.4) Urine Opiates Screen Neg (NEGATIVE) Urine Fentanyl Screen Neg (NEGATIVE) Urine Barbiturates Screen Neg (NEGATIVE) Urine Phencyclidine Screen Neg (NEGATIVE) Urine Amphetamines Screen Neg (NEGATIVE) Urine Benzodiazepines Screen Neg (NEGATIVE) Urine Cocaine Screen Neg (NEGATIVE) Urine Cannabinoids Screen Pos (NEGATIVE) Test 04/25/25 22:37 Lipase 20 U/L (12-53) Other Laboratory Tests 04/27/25 05:36 Brief Hx & Hospital Course: see dictated note Condition at Discharge: Fair Final Diagnosis/Problems List abd pain Discharge Disposition: Acute Care Facility Discharge Instruct/Medications Diet: See Comment Diet comment: clear liquid Activity: No Restrictions, As Tolerated Follow Up/Referral: [facility] with [facility] Medications: per oct Discharge Statement: "Patient was advised to return to the ER or call 911 if any headaches, dizziness, shortness of breath, chest pain, abdominal pain, bleeding, fevers, or worsening of medical condition. Patient was counseled about treatment plan, medications, possible side effects, patientverbalized understanding. All questions were answered to the best of my ability. This discharge took greater then 30 minutes in planning, reviewing documentation, counseling the patient, and discussing with other team members." ASSESSMENT ASSESSMENT Assessment abd pain Date of Service: Apr 27, 2025 Billing Provider: MATIAS JAMA MD Common Visit Codes: [id number] DISCH DAY >30min MATIAS JAMA MD Apr 27, 2025 12:28
[2025-04-27] MEDS: SODIUM CHLORIDE 0.9% 1,000 ML IV SCH (12:30)
[2025-04-27] MEDS: PANTOPRAZOLE 40 MG/10 ML VIAL INJ IV ONE (12:30)
--- NOTE | 2025-04-27 13:39 | DVHINCON2 ---
GI Consult Consult Note GI consult note Date of Consultation: 04/27/2025 Chief Complaint: Abdominal pain, vomiting Referring Physician: Dr. Garcia H&P: 40-year-old male with past medical history of diabetes admitted with complains of intractable nausea and vomiting, for the past one-week. Patient has been unable to hold any food or water down. No hematemesis. No melena or red blood in stool. 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 Positive marijuana Family History: Noncontributory Review of Systems: Constitutional: no fever, chill, weight loss HEENT: no eye pain, no hearing loss, no oral lesion, no scleral icterus Heart: no chest pain, no chest pressure Lung: no cough, no dyspnea with exertion Abdomen: see HPI Physical exam: General: NAD, AAOX3 Chest: lung milligan clear to auscultation Heart: RRR, no murmur Abdomen: non-distended, no tenderness to palpation, +BS Labs: Labs Test 04/27/25 12:46 04/27/25 11:51 04/27/25 05:36 04/26/25 18:02 Range/Units POC Glucose 108 H 70-106 mg/dl White Blood Count 11.4 #H 4.4-10.8 10^3/uL Red Blood Count 4.37 L 4.5-5.90 10^6/uL Hemoglobin 12.9 L 13.5-17.5 g/dL Hematocrit 37.8 L 41.0-53.0 % Mean Corpuscular Volume 86.5 80.0-100.0 fL Mean Corpuscular Hemoglobin 29.6 28.0-32.0 pg Mean Corpuscular Hemoglobin Concent 34.2 32.0-36.0 g/dL Red Cell Distribution Width 14.6 H 11.8-14.3 % Platelet Count 247 140-450 10^3/uL Mean Platelet Volume 8.4 6.9-10.8 fL Neutrophils (%) (Auto) 68.5 37.0-80.0 % Lymphocytes (%) (Auto) 19.1 10.0-50.0 % Monocytes (%) (Auto) 12.1 H 0.0-12.0 % Eosinophils (%) (Auto) 0.1 0.0-7.0 % Basophils (%) (Auto) 0.2 0.0-2.0 % Neutrophils # (Auto) 7.8 1.6-8.6 10 ^3/uL Lymphocytes # (Auto) 2.2 0.4-5.4 10 ^3/uL Monocytes # (Auto) 1.4 H 0-1.3 10 ^3/uL Eosinophils # (Auto) 0 0-0.8 10 ^3/uL Basophils # (Auto) 0 0-0.2 10 ^3/uL Nucleated Red Blood Cells 0.0 % Sodium Level 138 136-145 mmol/L Potassium Level 4.0 3.5-5.1 mmol/L Chloride Level 101 98-107 mmol/L Carbon Dioxide Level 28 20-31 mmol/L Anion Gap 9 5-15 Blood Urea Nitrogen 11 9-23 mg/dL Creatinine 0.88 0.700-1.30 mg/dL Glomerular Filtration Rate Calc 112 >90 mL/min BUN/Creatinine Ratio 12.5 10.0-20.0 Serum Glucose 100 74-106 mg/dL Calcium Level 8.1 L 8.7-10.4 mg/dL Total Bilirubin 0.9 0.2-1.0 mg/dL Aspartate Amino Transferase (AST) 32 13-40 U/L Alanine Aminotransferase (ALT) 31 7-40 U/L Alkaline Phosphatase 67 46-116 U/L Total Protein 5.7 5.7-8.2 g/dL Albumin 3.4 3.2-4.8 g/dL Hepatitis B Surface Antigen Negative Negative Hepatitis C Antibody Negative Negative Test 04/26/25 14:23 04/26/25 12:57 04/26/25 10:09 04/26/25 07:57 Range/Units Urine Color Light-yellow Yellow Urine Clarity Clear Clear Urine pH 5.5 5.0-9.0 Urine Specific [place] 1.034 1.001-1.035 Urine Protein Negative Negative Urine Ketones 4+ H Negative Urine Blood Negative Negative /uL Urine Nitrite Negative Negative Urine Bilirubin Negative Negative Urine Urobilinogen Normal Negative mg/dL Urine Leukocyte Esterase Negative Negative /uL Urine RBC <1 0 - 3 /hpf Urine Microscopic WBC < 1 0-3 /HPF Urine Squamous Epithelial Cells None seen <5 /hpf Urine Bacteria None seen None Seen /hpf Urine Glucose 4+ H Normal mg/dL Troponin I High Sensitivity 8 </=54 ng/L Blood Gas Specimen Type Arterial Blood Gas Sample Site Left brachial Blood Gas Patient Temperature 37.0 Arterial Blood Date Drawn [id number] Arterial Blood pH 7.375 7.350-7.450 Arterial Blood Partial Pressure CO2 28.0 L 35.0-48.0 mmHg Arterial Blood Partial Pressure O2 90.5 83.0-108.0 mmHg Arterial Blood HCO3 16.0 L 21.0-28.0 mmol/L Arterial Blood Oxygen Saturation 95.9 94.0-98.0 % Arterial Blood Base Excess -7.7 L -2.0-3.0 mmol/L Arterial Blood Oxyhemoglobin 94.7 94.0-98.0 % Arterial Blood Carboxyhemoglobin 0.9 0.5-1.5 % Arterial Blood Methemoglobin 0.3 0.0-1.5 % Alfred Test N/a Blood Gas Total Hemoglobin 13.40 L 13.5-17.5 g/dL Blood Gas Modality Room air FiO2 % 21.0 Hemoglobin A1c 9.3 H <5.7 % A1C Serum Osmolality 304 H 278-298 mOsm/kg Lactic Acid Level 1.4 0.4-2.0 mmol/L Phosphorus Level 3.0 2.4-5.1 mg/dL Magnesium Level 1.9 1.6-2.6 mg/dL Beta-Hydroxybutyric Acid > 4.500 H < 0.4 mmol/L Test 04/25/25 23:59 04/25/25 22:37 Range/Units Urine Opiates Screen Neg NEGATIVE Urine Fentanyl Screen Neg NEGATIVE Urine Barbiturates Screen Neg NEGATIVE Urine Phencyclidine Screen Neg NEGATIVE Urine Amphetamines Screen Neg NEGATIVE Urine Benzodiazepines Screen Neg NEGATIVE Urine Cocaine Screen Neg NEGATIVE Urine Cannabinoids Screen Pos NEGATIVE Lipase 20 12-53 U/L Microbiology Date/Time Source Procedure Growth Status 04/26/25 00:52 Blood Blood Culture - Preliminary NO GROWTH AFTER 24 HOURS OF INCUBATION. Resulted Imaging: CT abdomen pelvis IMPRESSION: No bowel obstruction, free intraperitoneal air/ fluid or sizable inflammatory collections identified on this noncontrast examination. Assessment: Intractable nausea and vomiting Diabetes with history of DKA Positive marijuana use Plan: Patient seen by Dr. Villaseñor also - Pt will be scheduled for an EGD today 04/27/2025. Pt was informed of the risks (bleeding, infection, perforation, reaction to sedation medications and cardiopulmonary arrest) and benefit and is agreeable to undergo the procedures. Further recommendations to follow procedure Plan discussed with patient and RN Thank you for this consult Date of Service: Apr 27, 2025 Billing Provider: BOB MARTINS Common Visit Codes: CONSULT ONLY Consultation Codes: [id number] CONSULT <60MIN BOB MARTINS Apr 27, 2025 13:39
[2025-04-27 13:53] LABS: INR 1.01 (0.9-1.15); Prothrombin Time 10.7 sec (9.3-11.8)
[2025-04-27] MEDS ORDERED: LIDOCAINE VISCOUS 2% 15ML UD ONE (16:03)
[2025-04-27] MEDS ORDERED: fentaNYL CITRATE 100 MCG/2 ML VL ONE (16:42)
[2025-04-27] MEDS ORDERED: MIDAZOLAM HCL 2MG/2ML 2ml VIAL (1mg/ml) ONE (16:42)
[2025-04-27] MEDS ORDERED: PROPOFOL 10 MG/ML 20 ML IV ONE (16:55)
--- NOTE | 2025-04-27 17:00 | DVHOP2 ---
Operative Report DATE OF OPERATION: 04/27/25 PROCEDURE: Upper Endoscopy with biopsy. PREOPERATIVE INDICATION: The patient is a 40 -year-old male undergoing endoscopy for severe GERD nausea vomiting and dyspepsia POSTOPERATIVE DIAGNOSES: 1. 2 cm sliding-type hiatal hernia with the acute grade C linear erosive esophagitis with ulcers extending into the distal 8-10 cm of the esophagus from which biopsies were obtained 2. Minimal gastroduodenitis with pyloric channel spasm otherwise normal examination up to the 2nd and 3rd part of the duodenal with good bile drainage and no GI bleeding PROCEDURE PERFORMED BY: Daxa Villaseñor GI NURSE: Shelly SCOPE: Olympus videoendoscope. ASA CLASS: 3. PREOPERATIVE MEDICATIONS: Mac sedation, PROCEDURE IN DETAIL: After obtaining an informed consent, the patient was placed on left lateral decubitus position. The patient was then sedated with the above medications. A bite block was placed between his teeth. The endoscope was then passed through the oropharynx, into the esophagus, and through the stomach and pylorus up to the second and third part of the duodenum. The endoscope was then withdrawn. The 2nd and 3rd part of the duodenum and the duodenal bulb were normal. Patient had mild pylorospasm There was mild antral gastritis. On retroflexion the fundus and cardia were normal. Duodenal and gastric biopsies were obtained. The endoscope was then withdrawn into distal esophagus where the patient had a 2 cm sliding-type hiatal hernia with the acute grade C erosive esophagitis Patient had esophageal linear ulcers extending into the distal 8-10 cm of the esophagus from which biopsies were obtained. The proximal esophagus and oropharynx were unremarkable The patient tolerated the procedure well without difficulty. COMPLICATIONS : None SPECIMENS: Duodenal biopsies Gastric biopsies Esophageal biopsies DISPOSITION: Transfer back to the floor Stable PLAN: 1. Await for biopsy result 2. Will place pt on Protonix 40 mg bid IV 3. Carafate suspension 1 g p.o. 4 times a day 4. Clear liquid diet advance to full liquid 5. Dietary and lifestyle modifications for GERD DAXA VILLASEÑOR MD Apr 27, 2025 17:00
[2025-04-27] MEDS: SUCRALFATE 1 GM/10 ML ORAL SUSP PO SCH (18:56)
[2025-04-27] MEDS: KETOROLAC TROMETH 30 MG/ML 1ML VIAL IV ONE (20:15)
[2025-04-27] MEDS: HYDROcodone-ACET 5/325MG TAB PO PRN (20:30)
[2025-04-27] MEDS: PANTOPRAZOLE 40 MG/10 ML VIAL INJ IV SCH (21:19)
[2025-04-27] MEDS: MORPHINE SULFATE INJ 2 MG/ml SYRG IV ONE (21:47)
[2025-04-28] VITALS (9 sets, daily range): BP systolic 107–155; BP diastolic 63–98; PULSE 59–71; RESP 7–16; TEMP 97.7–99.1; O2SAT 95–100
[2025-04-28] MEDS: MORPHINE SULFATE INJ 2 MG/ml SYRG IV PRN (01:31)
[2025-04-28 05:48] LABS: Hematocrit 39.4 % (41.0-53.0); Hemoglobin 13.5 g/dL (13.5-17.5); Mean Corpuscular Hemoglobin 29.8 pg (28.0-32.0); Mean Corpuscular Volume 87.0 fL (80.0-100.0); Nucleated Red Blood Cells % 0.2 %
[2025-04-28 06:12] LABS: Alanine Aminotransferase 23 U/L (7-40); Albumin 3.3 g/dL (3.2-4.8); Alkaline Phosphatase 69 U/L (46-116); Anion Gap 9 (5-15); BUN/Creatinine Ratio 8.0 (10.0-20.0); Bilirubin, Total 0.9 mg/dL (0.2-1.0); Blood Urea Nitrogen 6 mg/dL (9-23); Calcium 8.0 mg/dL (8.7-10.4); Carbon Dioxide 28 mmol/L (20-31); Chloride 102 mmol/L (98-107); Glucose 161 mg/dL (74-106); Potassium 3.6 mmol/L (3.5-5.1); Sodium 139 mmol/L (136-145); Total Protein 5.6 g/dL (5.7-8.2)
[2025-04-28] MEDS ORDERED: PANTOPRAZOLE 40 MG/10 ML VIAL INJ IV SCH (10:00)
[2025-04-28] MEDS: HYDROmorphone HCL 2 MG/ML VL/or syr IV PRN (12:51)
--- NOTE | 2025-04-28 16:08 | DVHPN2 ---
Progress Note Date Seen: Apr 28, 2025 Medical Necessity Reason Pt with a Central, PICC or Fol: No Subjective Patient reports: No new complaints Review of Systems: HEENT:Normal, CVS:Normal, RESPIRATORY:Normal, GI:Normal, :Normal, MSK:Normal, NEURO:Normal Objective vital signs Vital Sign Date Time Temp Pulse Resp B/P (MAP) Pulse Ox O2 Delivery O2 Flow Rate FiO2 04/28/25 13:21 70 10 145/63 04/28/25 12:00 99.0 100 99.0 04/28/25 08:00 Room Air* 0 21 Total Intake and Output 04/27/25 04/27/25 04/28/25 15:00 23:00 07:00 Intake Total 1280 ml 1200 ml Balance 1280 ml 1200 ml medications Current Medications Medications Dose Ordered Sig/Mayank Route Start Time Stop Time Status Last Admin Dose Admin Metoclopramide HCl 10 mg Q6HPRN PRN IV 04/26/25 08:30 04/26/25 09:33 10 MG Acetaminophen/ Hydrocodone Bitart 1 tab Q4HP PRN PO 04/26/25 10:00 04/27/25 20:30 1 TAB Ondansetron HCl 4 mg Q4HP PRN IV 04/26/25 10:00 04/28/25 12:14 4 MG Docusate Sodium 100 mg BIDPRN PRN PO 04/26/25 10:00 Acetaminophen 650 mg Q6HP PRN PO 04/26/25 10:00 Nitroglycerin 0.4 mg Q5MINP PRN SL 04/26/25 10:00 Morphine Sulfate 2 mg Q30M PRN IV 04/26/25 10:00 04/27/25 18:58 2 MG Insulin Glargine 12 units HS SC 04/26/25 22:00 04/27/25 21:23 12 UNITS Throat Lozenges 1 gerry Q2HP PRN MT 04/26/25 15:45 Morphine Sulfate 2 mg Q4HP PRN IV 04/27/25 12:30 Hold 04/28/25 10:27 2 MG Diagnostic Test (Pha) 1 strip Q6HR 04/27/25 18:00 04/28/25 08:01 1 STRIP Insulin Human Regular Q6HR SC 04/27/25 18:00 04/28/25 10:28 8 UNITS Dextrose 50 ml UD PRN IV 04/27/25 12:30 Sodium Chloride 1,000 ml @ 100 mls/hr Q10H IV 04/27/25 12:30 04/28/25 08:05 100 MLS/HR Pantoprazole Sodium 40 mg BID IV 04/27/25 22:00 04/28/25 08:00 40 MG Sucralfate 1 gm QID@0600,1130,1700,2200 PO 04/27/25 17:00 04/28/25 09:29 1 GM Hydromorphone HCl 1 mg Q4HPRN PRN IV 04/28/25 12:30 04/28/25 12:51 1 MG Examination: GENERAL:Normal, HEENT:Normal, NECK:Normal, LUNGS:Normal, CVS:Normal, ABDOMEN:Normal, MSK:Normal, SKIN:Normal, NEURO:Normal, :Normal laboratory and microbiology Laboratory Tests 04/28/25 05:15 Test 04/28/25 05:15 Range/Units Serum Glucose 161 H 74-106 mg/dL Microbiology Date/Time Source Procedure Growth Status 04/26/25 15:02 Nose MRSA Screen - Final Complete 04/26/25 00:52 Blood Blood Culture - Preliminary NO GROWTH AFTER 48 HOURS OF INCUBATION. Resulted Problem List/Assessment/Plan Problem List/Assessment/Plan #1 dka: lantus, ssi #2 abd pain/erosive esophagitis: ppi, ivf #3 sirs due to dka Plan discussed with: Patient My Orders My Orders Orders - MATIAS JAMA MD Procedure Category Date Status Time Hydromorphone PHA 04/28/25 In Process Injection (Dilaudid 12:30 * [employer] Developer CONS 04/28/25 Transmitted Consult Imaging Transfer ORDERS 04/28/25 Transmitted Request 14:56 Consistent DIET 04/28/25 [facility]Diabetes Dinner Basic Metabolic Panel LAB 04/29/25 Verified 06:00 Complete Blood Count LAB 04/29/25 Verified 06:00 Dietary Evaluation Review Comments: Offer Clear liquid with Ensure Clear and double broth Monitor and followup with GI [facility] diet when medically feasible Expected Outcomes/Goals: recover gi function controlled DM maintain wt. Date of Service: Apr 28, 2025 Billing Provider: MATIAS JAMA MD Common Visit Codes: [id number] INP/OBS CARE(HIGH) MATIAS JAMA MD Apr 28, 2025 16:08
--- NOTE | 2025-04-28 16:35 | DVHDS ---
The patient is a 40-year-old gentleman who was admitted with history of intractable nausea and vomiting for one week prior to admission and has history of diabetes. HOSPITAL COURSE: The patient had CT of abdomen and pelvis that showed no evidence of bowel obstruction. The patient was seen in GI consult by Dr. Villaseñor. White count was elevated at 19,000 that improved to 6000 at time of discharge. Tox screen was positive for cannabis. The patient's anion gap at the time of admission was 17. The patient's beta-hydroxybutyrate was also positive. The patient underwent upper endoscopy that showed evidence of severe erosive esophagitis with ulcers. The patient will now be transferred to [place] for further management. FINAL DIAGNOSES: * Diabetic ketoacidosis. * Abdominal pain with erosive esophagitis and ulcers. * Uncontrolled diabetes mellitus. Critical care time spent was 39 minutes. MD GENET Gutierrez/YRIS TID: [id number] RECEIPT: [id number]
--- NOTE | 2025-04-28 22:56 | DVHPN2 ---
Progress Note - Dictate Date Seen: Apr 28, 2025 (Late entryTime of visit 5:00 p.m.) Medical Necessity Reason Pt with a Central, PICC or Fol: No Subjective No new complaints EGD findings reviewed with the patient of hiatal hernia with chronic GERD and esophagitis vital signs Vital Sign Date Time Temp Pulse Resp B/P (MAP) Pulse Ox O2 Delivery O2 Flow Rate FiO2 04/28/25 18:00 98.5 70 10 107/63 (78) 100 98.5 04/28/25 08:00 Room Air* 0 21 Total Intake and Output 04/27/25 04/27/25 04/28/25 15:00 23:00 07:00 Intake Total 1280 ml 1200 ml Balance 1280 ml 1200 ml objective General: NAD, AAOX3 Chest: lung milligan clear to auscultation Heart: RRR, no murmur Abdomen: non-distended, no tenderness to palpation, +BS laboratory and microbiology Laboratory Tests 04/28/25 05:15 Test 04/28/25 05:15 Range/Units Serum Glucose 161 H 74-106 mg/dL Problems(with codes): (1) Hiatal hernia with gastroesophageal reflux disease and esophagitis (2) Diabetic ketoacidosis (3) Nausea and vomiting (4) Leukocytosis (5) Hyperglycemia Prognosis Plan Dietary and lifestyle modifications for GERD discussed with the patient Patient was advised to maintain himself on a PPI long-term He is advised to DC smoking and alcohol Discharge planning is in progress Patient is being transferred to [facility] Dietary Evaluation Review Comments: Offer Clear liquid with Ensure Clear and double broth Monitor and [facility] when medically feasible Expected Outcomes/Goals: recover gi function controlled DM maintain wt. Plan discussed with: Patient DAXA OCAMPO MD Apr 28, 2025 22:56
== END 2025-04-28 19:24 | disposition short-term general hospital (02) | DRG 380 ==
LOC: ER 20:58 → OVERFLOW 04-26 09:49 → DOU 04-26 15:01
PROVIDERS: ADMIT Internal Medicine; ATTEND Internal Medicine
PROC: 0DB68ZX Excision of Stomach, Via Natural or Artificial Opening Endoscopic, Diagnostic (ICD-10-PCS; 2025-04-27)
PROC: 0DB98ZX Excision of Duodenum, Via Natural or Artificial Opening Endoscopic, Diagnostic (ICD-10-PCS; 2025-04-27)
PROC: 0DB18ZX Excision of Upper Esophagus, Via Natural or Artificial Opening Endoscopic, Diagnostic (ICD-10-PCS; principal; 2025-04-27 16:34)
DX: K22.10 Ulcer of esophagus without bleeding (principal); E10.10 Type 1 diabetes mellitus with ketoacidosis without coma; R65.10 Systemic inflammatory response syndrome (SIRS) of non-infectious origin without acute organ dysfunction; K29.70 Gastritis, unspecified, without bleeding; K44.9 Diaphragmatic hernia without obstruction or gangrene; D72.829 Elevated white blood cell count, unspecified; K31.3 Pylorospasm, not elsewhere classified; K21.00 Gastro-esophageal reflux disease with esophagitis, without bleeding; Z79.4 Long term (current) use of insulin
CPT/HCPCS: 36415; 36600; 74176; 80048; 80053; 80307; 81001; 82010; 82805; 82962; 83036; 83605; 83690; 83735; 83930; 84100; 84484; 85025; 85610; 86803; 87040; 87081; 87340; 93005; 96361; 96374; G0378; J1100; J1815; J2250; J2405; J2470; J2704

== ENCOUNTER 2025-08-16 22:51 | Inpatient (IN) | payer MEDICAID, OTHER ==
[~2025-08-16] VITALS: Ht 188 cm; Wt 78.6 kg
--- NOTE | 2025-08-16 23:52 | DVH ---
CLINICAL INDICATION: injury, wound, DM TECHNIQUE: XY L 1ST TOE XRAY COMPARISON: None FINDINGS/IMPRESSION: : There is no evidence of acute fracture or dislocation. Lucent erosion along the medial distal margin of the 1st proximal phalanx adjacent to the articular surface. Soft tissues are unremarkable.
[2025-08-17] VITALS (10 sets, daily range): BP systolic 105–149; BP diastolic 80–86; PULSE 70–95; RESP 16–20; TEMP 97.3–98.3; O2SAT 96–100
--- NOTE | 2025-08-17 00:09 | ED.PDOC ---
Musculoskeletal HPI Comments HPI: Poor Historian. 40-year-old male presents to emergency depart for evaluation of one day history of left great toe redness swelling and tenderness to palpation. Patient has history of injury to that toe five years ago. Patient is concerned that he might be getting a toe infection that could lead to him losing his big toe in amputation just like what happened to him before. Patient denies any other acute symptoms. Past Medical History: Asthma, diabetes Past Surgical History: Finger amputation REVIEW OF SYSTEMS: CONSTITUTIONAL: Denies acute: fever, diaphoresis, chills, generalized weakness. HEAD: Denies acute: headache, photophobia Eyes: Denies acute: Double vision, vision loss, eye pain, eye discharge. EARS: Denies acute: tinnitus, hearing loss, ear discharge, ear pain, THROAT: Denies acute: sore throat, swelling, difficulty swallowing , pain with swallowing, change in voice. NECK: Denies acute: neck pain, neck swelling, stiff neck. HEART: Denies acute : chest pain, palpitations, LUNGS: Denies acute: SOB, wheezing, cough, hemoptysis ABDOMEN: Denies acute: abdominal pain, Nausea, Vomiting, diarrhea, melena , hematemesis, hematochezia SKIN: Denies acute: rash, itchiness. EXTREMITIES: Denies acute: calf pain, numbness, tingling, weakness, Denies acute: Low back pain. Neuro: Denies acute: focal neurological deficit, motor or sensory focal neurological deficit, tremors, seizure like activity, confusion, dizziness, change in mental status, loss of bowel or bladder function, cauda equina like symptoms. : Denies acute: dysuria, hematuria, flank pain, increase in urinary frequency. PSYCH: Denies acute: hallucination, suicidal ideation, homicidal ideation. PHYSICAL EXAM: General: ---mild-----acute distress, awake and alert. Head: normocephalic, atraumatic. No raccoon's eyes, no kim sign. Neck: supple, trachea is midline, no swelling. Throat: Normal phonation. Eyes:, no erythema, no purulent discharge, no proptosis, no icterus. Heart: regular rate, regular rhythm, no significant murmur appreciated. Lungs: no apparent respiratory distress, Able to speak in full sentences. Bilateral wheezing, no rhonchi, no crackles. No stridors Abdomen: non tender to palpation, non distended, soft, no guarding, no rebound, + bowel sounds. Neuro: Awake, Alert, oriented to name, self, situation, follows commands GCS=15. Speech is normal. Skin: no petechia, no purpura, no cyanosis, non-pale, not jaundice. Lower extremities: --no - Pitting edema no deformity, no calf TTP. Evaluation of the affected toe: Noted left great toe swelling redness and tenderness to palpation of the toe and the base of the toe as well. Patient is neurovascularly intact in the affected extremity. Pedal pulses palpable. Sensory and motor are present. Makes eye contact. moves all four extremities. Face: no apparent facial droop. Ambulating in the ED independently. Pedal pulses are palpable. ED COURSE: DISCLAIMER: This medical document was created using an electronic medical record system with voice recognition software and computerized dictation system. Although this document has been carefully reviewed, there might still be some phonetic and typographical errors. Occasional wrong-word or "sound-alike" substitutions may have occurred due to the inherent limitations of voice recognition software. These areas are purely typographical due to imperfections of the software programs and do not reflect any compromise in the patient's medical care. Please read the chart carefully and recognize, using context, where these substitutions have occurred. Chief Complaint: Lower Extremity Time Seen by MD: 23:07 Reviewed Notes: Nurses Notes, Allergies Allergies: Coded Allergies: NO KNOWN ALLERGIES (Unverified , 04/25/25) Home Meds Active Scripts Famotidine (PEPCID TABLET) 20 Mg Tb, 1 TAB PO BID for 14 Days, #28 TAB Prov:CHRISTIANO GREEN RESIDENT 08/17/25 Ibuprofen Micronized (Ibuprofen) 400 Mg Tab, 400 MG PO TID for 5 Days, #15 TAB Prov:CHRISTIANO GREEN RESIDENT 08/17/25 Amoxicillin & Pot Clavulanate (AUGMENTIN TABLET) 875 Mg Tb, 875 MG PO BID for 10 Days, #20 TAB Prov:CHRISTIANO RGEEN RESIDENT 08/17/25 Reported Medications Insulin Glargine-Yfgn (Insulin Glargine) 100 Unit/Ml Inj, SC, INJ 08/17/25 Insulin Lispro (Human) (Humalog) 100 Unit/Ml Inj, SC, INJ 08/17/25 Information Source: Patient Mode of Arrival: Ambulatory Location: Left Was a procedure done? Was a procedure done?: No Differential Diagnosis EXT Differential Diagnosis: Septic, Other (Leg swellingDdx include but not limited to DVT, ischemic limb, pitting edema, volume overload, CHF, cellulitis, hematoma, compartment syndrome, dependent edema, venous stasis. Necrotizing fasciitis, abscess, infestation.) X-Ray, Labs, Meds, VS Vital Signs Date Time Temp Pulse Resp B/P (MAP) Pulse Ox O2 Delivery O2 Flow Rate FiO2 08/17/25 02:10 97.3 95 20 136/86 (103) 96 97.3 08/17/25 02:10 95 20 96 Room Air 08/17/25 01:10 20 97 Room Air* 0 21 08/16/25 22:56 98.6 109 16 120/87 97 98.6 Lab Test 08/16/25 23:39 08/16/25 23:34 Range/Units Lactic Acid Level 1.2 0.4-2.0 mmol/L White Blood Count 7.8 4.4-10.8 10^3/uL Red Blood Count 4.85 4.5-5.90 10^6/uL Hemoglobin 14.4 13.5-17.5 g/dL Hematocrit 42.1 41.0-53.0 % Mean Corpuscular Volume 86.7 80.0-100.0 fL Mean Corpuscular Hemoglobin 29.6 28.0-32.0 pg Mean Corpuscular Hemoglobin Concent 34.1 32.0-36.0 g/dL Red Cell Distribution Width 15.3 H 11.8-14.3 % Platelet Count 337 140-450 10^3/uL Mean Platelet Volume 8.2 6.9-10.8 fL Neutrophils (%) (Auto) 55.6 37.0-80.0 % Lymphocytes (%) (Auto) 31.1 10.0-50.0 % Monocytes (%) (Auto) 9.0 0.0-12.0 % Eosinophils (%) (Auto) 3.6 0.0-7.0 % Basophils (%) (Auto) 0.7 0.0-2.0 % Neutrophils # (Auto) 4.4 1.6-8.6 10 ^3/uL Lymphocytes # (Auto) 2.4 0.4-5.4 10 ^3/uL Monocytes # (Auto) 0.7 0-1.3 10 ^3/uL Eosinophils # (Auto) 0.3 0-0.8 10 ^3/uL Basophils # (Auto) 0.1 0-0.2 10 ^3/uL Nucleated Red Blood Cells 0.5 % Erythrocyte Sedimentation Rate 6 0-20 mm/hr Sodium Level 137 136-145 mmol/L Potassium Level 5.1 3.5-5.1 mmol/L Chloride Level 102 98-107 mmol/L Carbon Dioxide Level 26 20-31 mmol/L Anion Gap 9 5-15 Blood Urea Nitrogen 13 9-23 mg/dL Creatinine 1.28 0.700-1.30 mg/dL Glomerular Filtration Rate Calc 73 >90 mL/min BUN/Creatinine Ratio 10.2 10.0-20.0 Serum Glucose 414 *H 74-106 mg/dL Uric Acid 4.1 3.7-9.2 mg/dL Calcium Level 9.0 8.7-10.4 mg/dL Total Bilirubin 0.4 0.2-1.0 mg/dL Aspartate Amino Transferase (AST) 78 H 13-40 U/L Alanine Aminotransferase (ALT) 39 7-40 U/L Alkaline Phosphatase 93 46-116 U/L C-Reactive Protein High Sensitivity 0.30 <1.0 mg/dL Total Protein 6.7 5.7-8.2 g/dL Albumin 4.0 3.2-4.8 g/dL [place] [id number] Ph: [phone] DIAGNOSTIC IMAGING Diagnostic Imaging Report : [id number] Signed PATIENT: ELDA HOLLINS ACCT: [id number] UNIT: [id number] : 1985 LOC: ER ROOM / BED: / AGE / SEX: 40 / M ADM STATUS: REG ER SERVICE [id number] ORDERING PHYSICIAN: ROHINI SHARP DO PROCEDURE(s): LTOE1 - L 1ST TOE XRAY REASON: injury, wound, DM ORDER NUMBER(s): [id number], ACCESSION NUMBER(s): [id number] CLINICAL INDICATION: injury, wound, DM TECHNIQUE: XY L 1ST TOE XRAY COMPARISON: None FINDINGS/IMPRESSION: : There is no evidence of acute fracture or dislocation. Lucent erosion along the medial distal margin of the 1st proximal phalanx adjacent to the articular surface. Soft tissues are unremarkable. ATED BY: ISAAK VILLARREAL MD DICTATED DATE/TIME: 08/16/252349 SIGNED BY: ISAAK VILLARREAL MD SIGNED DATE/TIME: 08/16/252349 CC: Time of 1ST Reevaluation: 01:02 Reevaluation 1ST: Unchanged Patient Education/Counseling: Diagnosis, Treatment Family Education/Counseling: Other Comments MDM: patient presented with the above HPI.--toe swelling redness and possible infection in diabetic patient with uncontrolled diabetes.----workup was initiate d. patient was found with the above mentioned diagnosis. the following medications were ordered: please refer to order lists of meds and tests obtained by myself Dr. Sharp. Patient ED course and VS have been stabilized. Patient has been reassessed in the ED and remained in a stable condition. Pertinent incidental findings were discussed with the patient and/or family. Patient/family voices understanding and is agreeable with plan. Patient has been observed in the ED adequate length of time to insure improvement/stability. Escalation of care considered: Consideration of escalation to observation or admission We will the workup has been unrevealing, patient states his symptoms today is similar to when he had the same symptoms of his right ring finger which required amputation. I will start IV antibiotics. Patient was ADMITTED to the medicine team for further evaluation and treatment of their presentation. All the reports of any imaging studies that were ordered by myself were reviewed by myself. Departure 1 Departure Time of Disposition: 01:00 Impression: Primary Impression: Toe infection Disposition: ADMITTED INPATIENT Admit to: Tele Condition: Guarded e-Prescriptions Famotidine (PEPCID TABLET) 20 Mg Tb 1 TAB PO BID for 14 Days, #28 TAB Prov: CHRISTIANO GREEN RESIDENT 08/17/25 Ibuprofen Micronized (Ibuprofen) 400 Mg Tab 400 MG PO TID for 5 Days, #15 TAB Prov: CHRISTIANO GREEN RESIDENT 08/17/25 Amoxicillin & Pot Clavulanate (AUGMENTIN TABLET) 875 Mg Tb 875 MG PO BID for 10 Days, #20 TAB Prov: CHRISTIANO GREEN RESIDENT 08/17/25 Discharged With: Self Critical Care Note Critical Care Time?: ROHINI Acosta DO Aug 17, 2025 00:09
[2025-08-17 00:11] LABS: Hematocrit 42.1 % (41.0-53.0); Hemoglobin 14.4 g/dL (13.5-17.5); Mean Corpuscular Hemoglobin 29.6 pg (28.0-32.0); Mean Corpuscular Volume 86.7 fL (80.0-100.0); Nucleated Red Blood Cells % 0.5 %
[2025-08-17 00:22] LABS: Albumin 4.0 g/dL (3.2-4.8); Alkaline Phosphatase 93 U/L (46-116); Anion Gap 9 (5-15); BUN/Creatinine Ratio 10.2 (10.0-20.0); Bilirubin, Total 0.4 mg/dL (0.2-1.0); Blood Urea Nitrogen 13 mg/dL (9-23); Calcium 9.0 mg/dL (8.7-10.4); Carbon Dioxide 26 mmol/L (20-31); Chloride 102 mmol/L (98-107); Potassium 5.1 mmol/L (3.5-5.1); Sodium 137 mmol/L (136-145); Total Protein 6.7 g/dL (5.7-8.2)
[2025-08-17 00:25] LABS: Alanine Aminotransferase 39 U/L (7-40)
[2025-08-17 00:26] LABS: Glucose 414 mg/dL (74-106)
[2025-08-17] MEDS: ALBUTEROL SULF 2.5 MG/0.5ML(0.5%) NEB SOLN NEB ONE (01:08)
[2025-08-17] MEDS: IPRATROPIUM BROM 0.5 MG/2.5ML INH SOL NEB ONE (01:09)
[2025-08-17] MEDS: methylPREDNISolone SOD SUCC 125 MG/2 ML VL IM ONE (01:43)
[2025-08-17] MEDS: VANCOMYCIN 1GM/250ML KIT 250 ML IV ONE (01:43)
[2025-08-17] MEDS ORDERED: DEXTROSE (50%) 50ML SYRG IV PRN (03:00)
[2025-08-17] MEDS: ACETAMINOPHEN 325 MG TAB PO SCH (03:00)
[2025-08-17] MEDS ORDERED: KETOROLAC TROMETH 30 MG/ML 1ML VIAL IV PRN (03:00)
--- NOTE | 2025-08-17 03:25 | DVHHPRES ---
History of Present Illness Resident Creating Document: BROOK TRACY RESIDENT History of Present Illness Shown Yessenia, this is a 40-year-old male with past medical history of type 1 diabetes mellitus, status post amputation of infected 4th finger right hand, cellulitis of the scrotum, ingrown toenail, asthma, GERD, hypertension presented with complaints of swelling, redness and pain in the 1st toe of left foot since 1 day. Patient also complains of associated bleeding from the area. Patient complains of shortness of Breath, He reports of multiple diarrhea episodes in the past 2 days. He denies any fever, headache or abdominal pain. Labs revealed blood glucose the 400s. X-ray of the to revealed lucency. Patient is being admitted for further management and care. PMHx:type 1 diabetes mellitus, status post amputation of infected 4th finger right hand, cellulitis of the scrotum, ingrown toenail, asthma, GERD, hypertension PSHx:amputation of infected 4th finger right hand, surgery for cellulitis of the scrotum Family history: Family history of diabetes mellitus in grandmother Social history: Admits to smoking marijuana Home medication: Lispro as a sliding scale, Basaglar (12 units), Protonix, sucralfate Allergic history: No known allergies Review of Systems Review of Systems General: patient denies fever, fatigue, weaknes, sweating, any recent changes in appetite and weight HEENT: No headaches, visiual changes, hearing loss, tinnitus, nasal congestion and discharge, and sore throat. Cardiovascular: Denies chest pain, palpitations, dyspnea on exertion, orthopnea, or claudication. Respiratory: No cough, and wheezing. Gastrointestinal: Denies nausea, vomiting, dysphagia, odynophagia, heartburn, abdominal pain, flatulence, bloating, diarrhea, constipation, change in stool, or blood in stool. Genitourinary: No dysuria, hematuria, discharge, frequency, urgency, nocturia, incontinence, and urinary retention. Endocrine: No heat or cold intolerance, polydipsia, polyuria, and polyphagia. Neurological: No dizziness, extremity weakness and numbness, tremors, gait disturbance, seizures, and memory impairment. Psychiatric: Denies depression, anxiety,or insomnia. Musculoskeletal: Complains of pain and swelling in the left foot Skin: No rashes, itching, skin lesion, changes in hair, nail, skin texture and breast. Hematologic/Lymphatic: Denies easy bruising, bleeding tendencies, or lymph node enlargement. Allergies: Coded Allergies: NO KNOWN ALLERGIES (Unverified , 04/25/25) Medications Current Medications Medications Dose Ordered Sig/Mayank Route Start Time Stop Time Status Last Admin Dose Admin Enoxaparin Sodium 40 mg DAILY SC 08/17/25 10:00 Exam Vital Signs Vital Signs Date Time Temp Pulse Resp B/P (MAP) Pulse Ox O2 Delivery O2 Flow Rate FiO2 08/17/25 02:10 97.3 95 20 136/86 (103) 96 97.3 08/17/25 02:10 Room Air 08/17/25 01:10 0 21 Exam General Appearance: Alert, Oriented X3, Cooperative, mild distress HEENT: Atraumatic, PERRLA, EOMI, Mucous membrane moist/pink Respiratory: Clear to auscultation, Normal air movement Cardiovascular: Regular rate, Normal S1, Normal S2, No murmurs, no chest wall tenderness Abdominal: Normal bowel sounds, Soft, No tenderness, No hepatospenomegaly, No masses Extremities: Erythema complaint edema and tenderness in the left foot Skin: No rashes, No breakdown, No significant lesion Neuro: Normal gait, Normal speech, Strength at 5/5 X4 ext, Normal tone, Sensation intact, Cranial nerves 3-12 NL, Reflexes 2+ Psych/Mental Status: Mental status NL, Mood NL Labs/Xrays Labs Test 08/16/25 23:39 08/16/25 23:34 Range/Units Lactic Acid Level 1.2 0.4-2.0 mmol/L White Blood Count 7.8 4.4-10.8 10^3/uL Red Blood Count 4.85 4.5-5.90 10^6/uL Hemoglobin 14.4 13.5-17.5 g/dL Hematocrit 42.1 41.0-53.0 % Mean Corpuscular Volume 86.7 80.0-100.0 fL Mean Corpuscular Hemoglobin 29.6 28.0-32.0 pg Mean Corpuscular Hemoglobin Concent 34.1 32.0-36.0 g/dL Red Cell Distribution Width 15.3 H 11.8-14.3 % Platelet Count 337 140-450 10^3/uL Mean Platelet Volume 8.2 6.9-10.8 fL Neutrophils (%) (Auto) 55.6 37.0-80.0 % Lymphocytes (%) (Auto) 31.1 10.0-50.0 % Monocytes (%) (Auto) 9.0 0.0-12.0 % Eosinophils (%) (Auto) 3.6 0.0-7.0 % Basophils (%) (Auto) 0.7 0.0-2.0 % Neutrophils # (Auto) 4.4 1.6-8.6 10 ^3/uL Lymphocytes # (Auto) 2.4 0.4-5.4 10 ^3/uL Monocytes # (Auto) 0.7 0-1.3 10 ^3/uL Eosinophils # (Auto) 0.3 0-0.8 10 ^3/uL Basophils # (Auto) 0.1 0-0.2 10 ^3/uL Nucleated Red Blood Cells 0.5 % Erythrocyte Sedimentation Rate 6 0-20 mm/hr Sodium Level 137 136-145 mmol/L Potassium Level 5.1 3.5-5.1 mmol/L Chloride Level 102 98-107 mmol/L Carbon Dioxide Level 26 20-31 mmol/L Anion Gap 9 5-15 Blood Urea Nitrogen 13 9-23 mg/dL Creatinine 1.28 0.700-1.30 mg/dL Glomerular Filtration Rate Calc 73 >90 mL/min BUN/Creatinine Ratio 10.2 10.0-20.0 Serum Glucose 414 *H 74-106 mg/dL Uric Acid 4.1 3.7-9.2 mg/dL Calcium Level 9.0 8.7-10.4 mg/dL Total Bilirubin 0.4 0.2-1.0 mg/dL Aspartate Amino Transferase (AST) 78 H 13-40 U/L Alanine Aminotransferase (ALT) 39 7-40 U/L Alkaline Phosphatase 93 46-116 U/L C-Reactive Protein High Sensitivity 0.30 <1.0 mg/dL Total Protein 6.7 5.7-8.2 g/dL Albumin 4.0 3.2-4.8 g/dL SEPSIS Sepsis Screen Date sepsis recognized/suspect: Aug 17, 2025 Time Sepsis recognized/suspect: 220 Recent Procedure: No On Antibiotic Therapy: No Respiratory Rate >20: No Heart Rate >90: Yes Temp<36 C (96.8 F) or >38.3 C: No SBP <90 or MAP <65 mmHG: No New Acute Mental Status Change: No Is the patient on CPAP, BIPAP,: No Physician Orders L 1st Toe Xray (08/16/25 23:08) Casket Coverer (08/16/25 ) Admit (08/17/25 02:51) Allergies (08/17/25 02:51) Code Status (08/17/25 02:51) Enoxaparin Sodium (Lovenox) (08/17/25 10:00) Complete Blood Count (08/17/25 04:00) Comprehensive Metabolic Panel (08/17/25 04:00) Npo (Nothing By Mouth) Diet (08/17/25 Breakfast) Condition: Fair (08/17/25 02:51) Insulin Lantus (Glargine) (Lantus) (08/17/25 07:00) Glucose Blood (Accu-Chek Comfort Curve T (08/17/25 04:00) Moderate Insulin Ss (08/17/25 04:00) Dextrose 50% Syringe (08/17/25 03:00) Albuterol Medneb (Ventolin Medneb) (08/17/25 06:00) Ipratropium Medneb (Atrovent Medneb) (08/17/25 06:00) PTPTT (08/17/25 03:00) Chest Xray 1 View (08/17/25 03:00) Ct L Foot Wo Contrast (08/17/25 03:00) *Podiatry Consult Myleneon(Dvmg) (08/17/25 03:00) Lt Low Ext Art Duplex (08/17/25 03:00) * Wound Consult (08/17/25 ) Erythrocyte Sedimentation Rate (08/17/25 03:00) C-Reactive Protein (08/17/25 03:00) Acetaminophen Tablet (Tylenol Tablet) (08/17/25 03:00) Ketorolac Injection (Toradol Injection) (08/17/25 03:00) Drug Screen (08/17/25 03:00) Hemoglobin A1c (08/17/25 03:12) Lipid Panel (08/17/25 03:12) Vital Signs Date Time Temp Pulse Resp B/P (MAP) Pulse Ox O2 Delivery O2 Flow Rate FiO2 08/17/25 02:10 97.3 95 20 136/86 (103) 96 97.3 08/17/25 02:10 95 20 96 Room Air 08/17/25 01:10 20 97 Room Air* 0 21 08/16/25 22:56 98.6 109 16 120/87 97 98.6 Laboratory Tests Test 08/16/25 23:34 08/16/25 23:39 White Blood Count 7.8 10^3/uL (4.4-10.8) Lactic Acid Level 1.2 mmol/L (0.4-2.0) Medications Medications Dose Ordered Sig/Mayank Route Start Time Stop Time Status Last Admin Dose Admin Albuterol 2.5 mg ONCE ONCE NEB 08/17/25 01:00 08/17/25 01:03 DC 08/17/25 01:08 2.5 MG Ipratropium [place] 1 mg ONCE ONCE NEB 08/17/25 01:00 08/17/25 01:03 DC 08/17/25 01:09 1 MG Methylprednisolone Sodium Succinate 125 mg ONCE ONCE IM 08/17/25 01:00 08/17/25 01:03 DC 08/17/25 01:43 125 MG Vancomycin HCl 250 ml @ 250 mls/hr ONCE ONCE IV 08/17/25 01:00 08/17/25 01:59 DC 08/17/25 01:43 250 MLS/HR Assessment/Plan Assessment/Plan Assessment and plan Infected diabetic foot Left foot cellulitis Type 1 diabetes mellitus with uncontrolled hyperglycemia Ingrown toenail X-ray left foot:Lucent erosion along the medial distal margin of the 1st proximal phalanx adjacent to the articular surface. CT left foot Podiatry consult IV vancomycin and Zosyn Arterial Doppler Wound consult Lantus 20 unit, moderate sliding scale Pain management, scheduled Tylenol, ketorolac p.r.n. Hemoglobin A1c Lipid panel Acute asthma exacerbation Med neb History of amputation of 4th finger right hand Follow up with PCP on discharge Control blood glucose levels GERD Continue Protonix History of Hypertension Not on any home medication Blood pressure normal, not starting on meds PUD prophylaxis: protonix 40mg DVT prophylaxis: Levonox 40mg Barriers to discharge: Medical diagnosis and management in progress. Patient lives with girlfriend. Independent for ADL. PCP: None Specialist Relevent To Admission: Podiatry Case discussed with Dr. Yu Code Status: Full Code. Complex patient care discussion needed. Spend total 33 minutes for bedside assessment, case discussion and management. Plan discussed with: Patient My Orders Orders - BROOK TRACY RESIDENT Procedure Category Date Status Time Admit ADMIT 08/17/25 Transmitted 02:51 Allergies STACIA 08/17/25 In Process 02:51 Code Status CODE 08/17/25 Transmitted 02:51 Enoxaparin Sodium PHA 08/17/25 In Process (Lovenox) 10:00 Complete Blood Count LAB 08/17/25 Logged 04:00 Comprehensive LAB 08/17/25 Logged Metabolic Panel 04:00 Npo (Nothing By DIET 08/17/25 Transmitted Mouth) Diet Breakfast Condition: Fair STACIA 08/17/25 In Process 02:51 Insulin Lantus PHA 08/17/25 Logged (Glargine) (Lantus) 07:00 Glucose Blood PHA 08/17/25 Logged (Accu-Chek Comfort 04:00 Moderate Insulin Ss PHA 08/17/25 Transmitted 04:00 Dextrose 50% Syringe PHA 08/17/25 Transmitted 03:00 Albuterol Medneb PHA 08/17/25 Transmitted (Ventolin Medneb) 06:00 Ipratropium Medneb PHA 08/17/25 Transmitted (Atrovent Medneb) 06:00 PTPTT LAB 08/17/25 Logged 03:00 Chest Xray 1 View XY 08/17/25 Logged 03:00 Ct L Foot Wo Contrast CT 08/17/25 Logged 03:00 *Podiatry Consult CONS 08/17/25 Transmitted Musson(Dvmg) 03:00 Lt Low Ext Art Duplex US 08/17/25 Logged 03:00 * Wound Consult CONS 08/17/25 Transmitted Erythrocyte LAB 08/17/25 Logged Sedimentation Rate 03:00 C-Reactive Protein LAB 08/17/25 Logged 03:00 Acetaminophen Tablet PHA 08/17/25 Transmitted (Tylenol Tablet) 03:00 Ketorolac Injection PHA 08/17/25 Transmitted (Toradol Injection) 03:00 Drug Screen LAB 08/17/25 Logged 03:00 Hemoglobin A1c LAB 08/17/25 Transmitted 03:12 Lipid Panel LAB 08/17/25 Transmitted 03:12 Visit Coding STANDARD RES Billing Provider: BASSEM YU MD Date of Service if different f: Aug 17, 2025 Common Visit Codes: 20874-[id number] INP/OBS CARE (HIGH) Secondary Visit Codes: 19858-[id number] CARE PLAN 30 MINUTES BROOK TRACY RESIDENT Aug 17, 2025 03:25
[2025-08-17 03:29] LABS: Hematocrit 38.9 % (41.0-53.0); Hemoglobin 12.6 g/dL (13.5-17.5); Mean Corpuscular Hemoglobin 28.1 pg (28.0-32.0); Mean Corpuscular Volume 86.9 fL (80.0-100.0); Nucleated Red Blood Cells % 0.0 %
[2025-08-17] MEDS ORDERED: VANCOMYCIN PER PHARMACY 0 MG IV SCH (03:45)
[2025-08-17 03:46] LABS: Alanine Aminotransferase 63 U/L (7-40); Albumin 3.7 g/dL (3.2-4.8); Alkaline Phosphatase 82 U/L (46-116); Anion Gap 7 (5-15); BUN/Creatinine Ratio 11.0 (10.0-20.0); Bilirubin, Total 0.3 mg/dL (0.2-1.0); Blood Urea Nitrogen 13 mg/dL (9-23); Calcium 8.8 mg/dL (8.7-10.4); Carbon Dioxide 27 mmol/L (20-31); Chloride 100 mmol/L (98-107); Potassium 4.8 mmol/L (3.5-5.1); Sodium 134 mmol/L (136-145); Total Protein 6.4 g/dL (5.7-8.2)
[2025-08-17 03:47] LABS: Glucose 530 mg/dL (74-106)
[2025-08-17 03:48] LABS: INR 0.97 (0.9-1.15); Partial Thromboplastin Time 26.8 SEC (24.5-34.5); Prothrombin Time 10.3 sec (9.3-11.8)
[2025-08-17 03:59] LABS: Cholesterol 113 mg/dL (< 200); HDL Cholesterol 36 mg/dL (40-59); Triglycerides 110 mg/dL (< 150)
--- NOTE | 2025-08-17 04:09 | DVH ---
CHEST RADIOGRAPH INDICATION: Preop TECHNIQUE: Single frontal view of the chest was obtained COMPARISON: None FINDINGS: Lines and Tubes: None Lungs: Clear Pleura: No effusion. No pneumothorax. Cardiomediastinal contours: Unremarkable Bones: Unremarkable IMPRESSION: 1. No acute disease.
[2025-08-17] MEDS: PIPERACILLIN-TAZOB 3.375GM 100 ML IV ONE (04:13)
[2025-08-17] MEDS: ACCU-CHEK COMFORT CURVE STRIP VI SCH (04:18)
[2025-08-17] MEDS: InsuLIN REG 1unit/0.01ml Soln (100units/ml) SC SCH (04:30)
--- NOTE | 2025-08-17 05:05 | DVH ---
EXAMINATION: CT CT L FOOT WO CONTRAST INDICATION: Rule out osteomyelitis COMPARISON: XY L 1ST TOE XRAY on DOS: 08/16/25 TECHNIQUE: CT of the left foot was performed without contrast. Volume transverse images were obtained reconstructed in multiple planes using bone and soft tissue algorithms. CONTRAST: Radiograph dated 08/16/2025 Radiation Dose Information: CT Dose: CTDI volume is 7.8 mGy. Dose-length product is 246 mGy*cm FINDINGS: The alignment is normal. The joint spaces are normal. Oblique linear cortical irregularity in the 1st proximal phalanx. There are no joint effusions. The soft tissues are normal. IMPRESSION: Oblique linear cortical irregularity in the distal phalanx of the right great toe. This is most likely in the Age indeterminate nondisplaced fracture. No CT evidence of osteomyelitis.
[2025-08-17] MEDS: PIPERACILLIN-TAZOB 3.375GM 100 ML IV SCH (06:12)
[2025-08-17] MEDS: INSULIN LANTUS (GLARGINE) 1 /0.01ml (100units/ml) SC SCH (06:12)
[2025-08-17] MEDS: MORPHINE SULFATE INJ 2 MG/ml SYRG IV ONE (06:14)
[2025-08-17] MEDS: MORPHINE SULFATE 4 MG/ML SYR/VIAL ONE (06:24)
[2025-08-17] MEDS: INSULIN LISPRO (HUMAN) 100 UNITS/ML ML SC SCH (06:42)
[2025-08-17] MEDS: ALBUTEROL SULF 2.5 MG/0.5ML(0.5%) NEB SOLN NEB SCH (06:59)
[2025-08-17] MEDS: IPRATROPIUM BROM 0.5 MG/2.5ML INH SOL NEB SCH (06:59)
[2025-08-17] MEDS ORDERED: INSLISPI SC (07:31)
[2025-08-17] MEDS ORDERED: INSU100I70 SC (07:32)
--- NOTE | 2025-08-17 08:31 | DVH ---
Left Lower Extremity Arterial Duplex Date: 08/17/2025 07:20 AM CLINICAL HISTORY: Assess blood flow COMPARISON: None TECHNIQUE: Duplex Doppler evaluation including color Doppler and spectral/pulsed waveform analysis of the lower extremity arteries was performed. Finding: LEFT: Velocities and ratios within normal limits. Triphasic waveforms noted. REFERENCE VALUES, [facility]) vascular Imaging Lab Criteria: Peak systolic velocity ranges (in cm/sec) are as follows: <150 cm/s - <20 % stenosis 150-200 cm/s - 20-49% stenosis 200-300 cm/s - 50-75% stenosis >300 cm/s -> 75% stenosis IMPRESSION: There is no evidence for peripheral vascular insufficiency in the left lower extremity. No significant focal stenosis is identified.
--- NOTE | 2025-08-17 09:44 | DVHCONRES ---
Date Seen: Aug 17, 2025 Reason for Consultation Left toe cellulitis History of Present Illness Shown Yessenia, this is a 40-year-old male with past medical history of type 1 diabetes mellitus, status post amputation of infected 4th finger right hand, cellulitis of the scrotum, ingrown toenail, asthma, GERD, hypertension presented with complaints of swelling, redness and pain in the 1st toe of left foot since 1 day. Patient also complains of associated bleeding from the area. Patient complains of shortness of Breath, He reports of multiple diarrhea episodes in the past 2 days. He denies any fever, headache or abdominal pain. Labs revealed blood glucose the 400s. X-ray of the to revealed lucency. Patient is being admitted for further management and care. Past Medical History See H&P Past Surgical History See H&P Family History: Patient reports no known family medical history. Allergies: Coded Allergies: NO KNOWN ALLERGIES (Unverified , 04/25/25) Home Meds Reported Medications Insulin Glargine-Yfgn (Insulin Glargine) 100 Unit/Ml Inj, SC, INJ 08/17/25 Insulin Lispro (Human) (Humalog) 100 Unit/Ml Inj, SC, INJ 08/17/25 Current Medications Current Medications Medications (Trade) Dose Ordered Sig/Mayank Route PRN Reason Start Time Stop Time Status Last Admin Enoxaparin Sodium (Lovenox) 40 mg DAILY SC 08/17/25 10:00 Insulin Glargine (Lantus) 20 units QAM SC 08/17/25 07:00 08/17/25 06:12 Diagnostic Test (Pha) (Accu-Chek Comfort Curve T) 1 strip IQ4HR 08/17/25 04:00 08/17/25 08:00 Insulin Human Regular (InsuLIN R) IQ4HR SC 08/17/25 04:00 08/17/25 08:00 Dextrose 50 ml UD PRN IV Blood Sugar LESS THAN 60 08/17/25 03:00 Albuterol (Ventolin Medneb) 2.5 mg Q6HWA [facility] 08/17/25 06:00 Ipratropium Duff (Atrovent Medneb) 0.5 mg Q6HWA [facility] 08/17/25 06:00 Acetaminophen (Tylenol Tablet) 650 mg Q6HR PO 08/17/25 03:00 08/17/25 06:12 Ketorolac Tromethamine (Toradol Injection) 15 mg Q6HPRN PRN IV MODERATE PAIN (4-6 PAIN SCALE) 08/17/25 03:00 08/22/25 02:59 Piperacillin Sod/ Tazobactam Sod 100 ml @ 25 mls/hr Q8HR IV 08/17/25 06:00 08/17/25 06:12 Pantoprazole Sodium (Protonix) 40 mg DAILY IV 08/17/25 10:00 Vancomycin HCl 0 ml @ 0 mls/hr PER PHARMACY IV 08/17/25 03:45 Insulin Human Lispro (HumaLOG) 6 units AC SC 08/17/25 07:00 08/17/25 06:42 Vancomycin HCl 250 ml @ 250 mls/hr Q8H IV 08/17/25 10:00 Vital Signs Vital Signs Date Time Temp Pulse Resp B/P (MAP) Pulse Ox O2 Delivery O2 Flow Rate FiO2 08/17/25 08:48 97.6 74 16 127/84 (98) 99 97.6 08/17/25 04:09 Room Air* 0 21 Physical Exam Dermatological: Skin is dry with mild erythema and some maceration around the wound site No gross deformities noted Mild non-pitting edema present bilaterally Left hallux cellulitis with thickening ingrown nail Vascular: Dorsalis pedis and posterior tibial pulses are 1+ bilaterally Capillary refill is under 2 seconds Skin temperature is warm bilaterally Neurologic: Protective sensation is absent on the plantar forefoot bilaterally Monofilament testing reveals decreased sensation in multiple plantar sites Musculoskeletal: Range of motion at the ankle and MTP joints is within normal limits. Strength is 5/5 in all tested muscle groups. Gait is antalgic due to offloading of the affected limb. Labs/Diagnostic Data Labs Test 08/17/25 06:00 08/17/25 03:17 08/16/25 23:39 08/16/25 23:34 Range/Units POC Glucose 361 H 70-106 mg/dl White Blood Count 8.4 4.4-10.8 10^3/uL Red Blood Count 4.48 L 4.5-5.90 10^6/uL Hemoglobin 12.6 L 13.5-17.5 g/dL Hematocrit 38.9 L 41.0-53.0 % Mean Corpuscular Volume 86.9 80.0-100.0 fL Mean Corpuscular Hemoglobin 28.1 28.0-32.0 pg Mean Corpuscular Hemoglobin Concent 32.3 32.0-36.0 g/dL Red Cell Distribution Width 15.7 H 11.8-14.3 % Platelet Count 259 140-450 10^3/uL Mean Platelet Volume 7.9 6.9-10.8 fL Neutrophils (%) (Auto) 72.2 37.0-80.0 % Lymphocytes (%) (Auto) 15.9 10.0-50.0 % Monocytes (%) (Auto) 9.8 0.0-12.0 % Eosinophils (%) (Auto) 1.7 0.0-7.0 % Basophils (%) (Auto) 0.4 0.0-2.0 % Neutrophils # (Auto) 6.1 1.6-8.6 10 ^3/uL Lymphocytes # (Auto) 1.3 0.4-5.4 10 ^3/uL Monocytes # (Auto) 0.8 0-1.3 10 ^3/uL Eosinophils # (Auto) 0.1 0-0.8 10 ^3/uL Basophils # (Auto) 0 0-0.2 10 ^3/uL Nucleated Red Blood Cells 0.0 % Erythrocyte Sedimentation Rate 7 0-20 mm/hr Prothrombin Time 10.3 9.3-11.8 sec Prothrombin Time INR 0.97 0.9-1.15 Activated Partial Thromboplast Time 26.8 24.5-34.5 SEC Sodium Level 134 L 136-145 mmol/L Potassium Level 4.8 3.5-5.1 mmol/L Chloride Level 100 98-107 mmol/L Carbon Dioxide Level 27 20-31 mmol/L Anion Gap 7 5-15 Blood Urea Nitrogen 13 9-23 mg/dL Creatinine 1.18 0.700-1.30 mg/dL Glomerular Filtration Rate Calc 81 >90 mL/min BUN/Creatinine Ratio 11.0 10.0-20.0 Serum Glucose 530 #*H 74-106 mg/dL Hemoglobin A1c 9.7 H <5.7 % A1C Calcium Level 8.8 8.7-10.4 mg/dL Total Bilirubin 0.3 0.2-1.0 mg/dL Aspartate Amino Transferase (AST) 101 H 13-40 U/L Alanine Aminotransferase (ALT) 63 H 7-40 U/L Alkaline Phosphatase 82 46-116 U/L C-Reactive Protein High Sensitivity 0.28 <1.0 mg/dL Total Protein 6.4 5.7-8.2 g/dL Albumin 3.7 3.2-4.8 g/dL Triglycerides Level 110 < 150 mg/dL Cholesterol Level 113 < 200 mg/dL LDL Cholesterol 55 < 100 mg/dL HDL Cholesterol 36 L 40-59 mg/dL Lactic Acid Level 1.2 0.4-2.0 mmol/L Uric Acid 4.1 3.7-9.2 mg/dL Assessment ASSESSMENT: Patient is a 40 year old seen on the floor for a worsening toe cellulitis PLAN: - The patients chart was reviewed, clinical findings were discussed with the patient, the etiologies of the conditions were discussed in detail, and a treatment plan was agreed to at this time, with both oral and written instructions provided. - reviewed advanced imaging - patient has taken ingrown nail on the left hallux - recommend treating with 2 weeks of p.o. antibiotics - after the antibiotics patient will come in for nail avulsion in clinic - no dressing required - soaking in Epson salts 15 minutes a day 1 cup in warm water - follow up 2 weeks after discharge All questions were answered and concerns addressed to the patient's satisfa ction. The patient was given the phone number to the clinic and was told how to make contact with the clinic should any concerns or questions arise. Patient understands that if any questions or concerns arise prior to the next appointment, we should be contacted immediately. FOLLOW-UP: Continue to follow while inpatient Problems(with codes): (1) Diabetic ketoacidosis (2) Hiatal hernia with gastroesophageal reflux disease and esophagitis (3) DKA (diabetic ketoacidosis) (4) Hyperglycemia (5) Leukocytosis (6) Nausea and vomiting (7) Toe infection Plan discussed with: Patient Visit Coding Podiatry Date of Service if different f: Aug 17, 2025 Billing Provider: PEÑA TESFAYE DPM Podiatry Common Visit Codes: CONSULT ONLY Podiatry Consult Codes: 14836-BV/OBS CONSLTJ NEW/EST HI 80 PEÑA TESFAYE DPM Aug 17, 2025 09:44
[2025-08-17] MEDS: VANCOMYCIN 1GM/250ML KIT 250 ML IV SCH (10:16)
[2025-08-17] MEDS: PANTOPRAZOLE 40 MG/10 ML VIAL INJ IV SCH (10:16)
[2025-08-17] MEDS: ENOXAPARIN SOD 40 MG/0.4 ML SYRINGE SC SCH (10:17)
[2025-08-17] MEDS ORDERED: IBUP1TAB4 PO ×2 (14:24→14:30)
[2025-08-17] MEDS ORDERED: FAMO20TA10 PO ×2 (14:24→14:30)
[2025-08-17] MEDS ORDERED: AUG875T PO ×2 (14:24→14:30)
--- NOTE | 2025-08-17 16:25 | DVHDSRES ---
Discharge Summary Date of Admission Resident Creating Document: KIRK MOORE RESIDENT Aug 17, 2025 at 02:51 Date of Discharge: Aug 17, 2025 Admitting Diagnosis Toe infection Wounds: edematous, erythremic and intact left foot with blackened left great toe nail. No drainage or odor noted. Also noted right great toenail blackened, intact without redness and swelling Labs/Diagnostic Data: Laboratory Results Test 08/17/25 11:40 08/17/25 03:17 08/16/25 23:39 08/16/25 23:34 POC Glucose 191 mg/dl (70-106) White Blood Count 8.4 10^3/uL (4.4-10.8) Red Blood Count 4.48 10^6/uL (4.5-5.90) Hemoglobin 12.6 g/dL (13.5-17.5) Hematocrit 38.9 % (41.0-53.0) Mean Corpuscular Volume 86.9 fL (80.0-100.0) Mean Corpuscular Hemoglobin 28.1 pg (28.0-32.0) Mean Corpuscular Hemoglobin Concent 32.3 g/dL (32.0-36.0) Red Cell Distribution Width 15.7 % (11.8-14.3) Platelet Count 259 10^3/uL (140-450) Mean Platelet Volume 7.9 fL (6.9-10.8) Neutrophils (%) (Auto) 72.2 % (37.0-80.0) Lymphocytes (%) (Auto) 15.9 % (10.0-50.0) Monocytes (%) (Auto) 9.8 % (0.0-12.0) Eosinophils (%) (Auto) 1.7 % (0.0-7.0) Basophils (%) (Auto) 0.4 % (0.0-2.0) Neutrophils # (Auto) 6.1 10 ^3/uL (1.6-8.6) Lymphocytes # (Auto) 1.3 10 ^3/uL (0.4-5.4) Monocytes # (Auto) 0.8 10 ^3/uL (0-1.3) Eosinophils # (Auto) 0.1 10 ^3/uL (0-0.8) Basophils # (Auto) 0 10 ^3/uL (0-0.2) Nucleated Red Blood Cells 0.0 % Erythrocyte Sedimentation Rate 7 mm/hr (0-20) Prothrombin Time 10.3 sec (9.3-11.8) Prothrombin Time INR 0.97 (0.9-1.15) Activated Partial Thromboplast Time 26.8 SEC (24.5-34.5) Sodium Level 134 mmol/L (136-145) Potassium Level 4.8 mmol/L (3.5-5.1) Chloride Level 100 mmol/L (98-107) Carbon Dioxide Level 27 mmol/L (20-31) Anion Gap 7 (5-15) Blood Urea Nitrogen 13 mg/dL (9-23) Creatinine 1.18 mg/dL (0.700-1.30) Glomerular Filtration Rate Calc 81 mL/min (>90) BUN/Creatinine Ratio 11.0 (10.0-20.0) Serum Glucose 530 mg/dL (74-106) Hemoglobin A1c 9.7 % A1C (<5.7) Calcium Level 8.8 mg/dL (8.7-10.4) Total Bilirubin 0.3 mg/dL (0.2-1.0) Aspartate Amino Transferase (AST) 101 U/L (13-40) Alanine Aminotransferase (ALT) 63 U/L (7-40) Alkaline Phosphatase 82 U/L (46-116) C-Reactive Protein High Sensitivity 0.28 mg/dL (<1.0) Total Protein 6.4 g/dL (5.7-8.2) Albumin 3.7 g/dL (3.2-4.8) Triglycerides Level 110 mg/dL (< 150) Cholesterol Level 113 mg/dL (< 200) LDL Cholesterol 55 mg/dL (< 100) HDL Cholesterol 36 mg/dL (40-59) Lactic Acid Level 1.2 mmol/L (0.4-2.0) Uric Acid 4.1 mg/dL (3.7-9.2) Other Laboratory Tests 08/17/25 03:17 Brief Hx & Hospital Course: Mr. 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 Patient states he had an injury to this toe five years prior, but for approximately one day he has had increased pain described as sharp, non-radiating, 7/10 intensity, associated with associated bleeding from the area. He denies any fever, headache, purulent discharge, nausea, vomiting, palpitations, generalized weakness, and malaise. Due to persistence of symptoms and concern due to previous amputations, he presented to the ED for evaluation. initial evaluation in the ED, the patient was afebrile, slightly tachycardic, with BP within normal range, saturating adequately on room air. Initial labs were significant for Labs revealed blood glucose the 400s. X-ray shows the erosion along the medial distal margin of the 1st proximal phalanx to the articular surface, soft tissues are unremarkable, no evidence of acute fracture or dislocation. patient was started on IV antibiotics and insulin scale for glycemic control. He was admitted for further workup and monitoring. On admission, arterial doppler and foot CT were ordered. Doppler shows no significant findings. CT shows oblique linear cortical irregularity in the distal phalanx of the right great toe likely due to an age indeterminate indeterminate nondisplaced fracture. The patient was evaluated by Podiatry, assessment that the patient most likely had an cellulitis and ingrown nail on the left hallux for which they recommended 2 weeks of oral antibiotics with follow-up outpatient visit 2 weeks after discharge. On evaluation today, the patient states he is well, complains of some pain. He is AOx4, afebrile, normocardic, with blood pressure within normal range, saturating adequately on room air. Follow-up labs are stable, glucose levels are more controlled. The patient is considered stable for discharge home with p.o. antibiotics and pain control. He has been given a discharge clinic appointment for further follow up. He will follow up with Dr. Ferrara outpatient. I have counseled the patient on medications, regimen, and potential side effects. All questions and concerns have been addressed. The patient states he understands and agrees. Physical Exam: General: The patient alert and oriented in person place and time. Patient following commands HEENT: Normocephalic, atraumatic, normal reactive pupils, EOM intact, pink conjunctiva, pink moist mucous membrane Respiratory/pulmonary: Bilateral chest expansion, no pain on palpation of chest wall, clear lungs bilaterally, vesicular murmurs present in almost all lung milligan, no associated crackles or wheezes. Cardiovascular: Normal RRR, normal S1 and S2, no murmurs Abdomen: Abdomen nondistended, normal bowel sounds, soft, there is no pain to palpation in any of the abdominal quadrants, no palpable masses. Extremities: No deformities, there is no peripheral edema present at the lower extremities, great toe nail of left foot is blackened,skin is dry with mild erythema and some maceration around the wound site, no suppuration or purulence noted, mild pain on palpation Skin: No rashes or pruritus, there is no sacral edema present at this time. Neurological: Intact cranial nerves with no focal neurologic deficits Goals of care and discharge planning discussed with the patient for over 35 minutes. Case discussed with Dr. Gee Consults/Reason for consult Podiatry was consulted for evaluation of possible left toe cellulitis Operations or Procedures CLINICAL INDICATION: injury, wound, DM TECHNIQUE: XY L 1ST TOE XRAY COMPARISON: None FINDINGS/IMPRESSION: : There is no evidence of acute fracture or dislocation. Lucent erosion along the medial distal margin of the 1st proximal phalanx adjacent to the articular surface. Soft tissues are unremarkable. CHEST RADIOGRAPH INDICATION: Preop TECHNIQUE: Single frontal view of the chest was obtained COMPARISON: None FINDINGS: Lines and Tubes: None Lungs: Clear Pleura: No effusion. No pneumothorax. Cardiomediastinal contours: Unremarkable Bones: Unremarkable IMPRESSION: 1. No acute disease. Left Lower Extremity Arterial Duplex Date: 08/17/2025 07:20 AM CLINICAL HISTORY: Assess blood flow COMPARISON: None TECHNIQUE: Duplex Doppler evaluation including color Doppler and spectral/pulsed waveform analysis of the lower extremity arteries was performed. Finding: LEFT: Velocities and ratios within normal limits. Triphasic waveforms noted. REFERENCE VALUES, [facility] ([facility]) vascular Imaging Lab Criteria: Peak systolic velocity ranges (in cm/sec) are as follows: <150 cm/s - <20 % stenosis 150-200 cm/s - 20-49% stenosis 200-300 cm/s - 50-75% stenosis >300 cm/s -> 75% stenosis IMPRESSION: There is no evidence for peripheral vascular insufficiency in the left lower extremity. No significant focal stenosis is identified. EXAMINATION: CT CT L FOOT WO CONTRAST INDICATION: Rule out osteomyelitis COMPARISON: XY L 1ST TOE XRAY on DOS: 08/16/25 TECHNIQUE: CT of the left foot was performed without contrast. Volume transverse images were obtained reconstructed in multiple planes using bone and soft tissue algorithms. CONTRAST: Radiograph dated 08/16/2025 Radiation Dose Information: CT Dose: CTDI volume is 7.8 mGy. Dose-length product is 246 mGy*cm FINDINGS: The alignment is normal. The joint spaces are normal. Oblique linear cortical irregularity in the 1st proximal phalanx. There are no joint effusions. The soft tissues are normal. IMPRESSION: Oblique linear cortical irregularity in the distal phalanx of the right great toe. This is most likely in the Age indeterminate nondisplaced fracture. No CT evidence of osteomyelitis. Condition at Discharge: Stable Final Diagnosis/Problems List Left great toe cellulitis with ingrown nail Type 1 diabetes mellitus with uncontrolled hyperglycemia Acute asthma exacerbation, ruled out History of amputation of 4th finger right hand GERD Hypertension Discharge Disposition: Home Discharge Instruct/Medications Diet: Cardiac 2g Na,low cholest Activity: No Restrictions, As Tolerated Follow Up/Referral: Follow up with PCP Follow up in discharge clinic in 72 hours Medications: Augmentin 875 mg PO BID for 10 days Ibuprofen 400 mg PO TID Scheduled Amoxicillin & Pot Clavulanate (Augmentin Tablet), 875 MG PO BID Famotidine (Pepcid Tablet), 1 TAB PO BID Ibuprofen Micronized (Ibuprofen), 400 MG PO TID Miscellaneous Medications Insulin Glargine-Yfgn (Insulin Glargine), Unknown Dose SC, (Reported) Insulin Lispro (Human) (Humalog), Unknown Dose SC, (Reported) Discharge Statement: "Patient was advised to return to the ER or call 911 if any headaches, dizziness, shortness of breath, chest pain, abdominal pain, bleeding, fevers, or worsening of medical condition. Patient was counseled about treatment plan, medications, possible side effects, patientverbalized understanding. All questions were answered to the best of my ability. This discharge took greater then 30 minutes in planning, reviewing documentation, counseling the patient, and discussing with other team members." ASSESSMENT ASSESSMENT Assessment Visit Coding STANDARD RES Billing Provider: BASSEM GEE MD Date of Service if different f: Aug 17, 2025 Common Visit Codes: [id number] INP/OBS CARE(MOD) KIRK MOORE RESIDENT Aug 17, 2025 16:25 BASSEM GEE MD Aug 18, 2025 14:37
[2025-09-02] MEDS ORDERED: ALBU108A5 IN (09:51)
[2025-09-02] MEDS ORDERED: PROM1SOL4 PO (09:51)
[2025-09-02] MEDS ORDERED: CEPH500C PO (09:51)
[2025-09-02] MEDS ORDERED: INSLISPI SC (09:58)
[2025-09-02] MEDS ORDERED: INSU100I70 SC (09:58)
== END 2025-08-17 18:07 | disposition home or self-care (01) | DRG 420 ==
LOC: ER 22:51 → OVERFLOW 08-17 02:51 → WEST WING 08-17 04:04
PROVIDERS: ADMIT Student in an Organized Health Care Education/Training Program; ATTEND Student in an Organized Health Care Education/Training Program
DX: E10.628 Type 1 diabetes mellitus with other skin complications (principal); L03.116 Cellulitis of left lower limb; L08.9 Local infection of the skin and subcutaneous tissue, unspecified; I10 Essential (primary) hypertension; E10.65 Type 1 diabetes mellitus with hyperglycemia; L60.0 Ingrowing nail; K21.9 Gastro-esophageal reflux disease without esophagitis; Z83.3 Family history of diabetes mellitus; Z89.021 Acquired absence of right finger(s)
CPT/HCPCS: 36415; 71045; 73660; 73700; 80053; 80061; 82962; 83036; 83605; 84550; 85025; 85610; 85652; 85730; 86141; 93926; 94640; 96365; 96372; 96375; G0378; J1815; J2470; J2543